=== PATIENT | male | born 1945 | race Caucasian/White ===

== ENCOUNTER 2017-11-30 12:00 | Emergency (ER) | payer MEDICARE, BC ==
--- NOTE | 2017-11-30 12:37 | RAD ---
HISTORY: CP, SOB COMPARISONS: August 29, 2005 VIEWS: 1: frontal portable view of the chest at 12:24 PM FINDINGS: LINES AND TUBES: None. CARDIOMEDIASTINAL SILHOUETTE: The cardiomediastinal silhouette is normal for portable technique. PLEURA: The costophrenic angles are sharp. No pleural abnormalities are noted. LUNG PARENCHYMA: The lungs are clear. ABDOMEN: The upper abdomen is clear. There is no subphrenic gas. BONES AND SOFT TISSUES: No bone or soft tissue abnormalities are noted. IMPRESSION: NO ACTIVE CARDIOPULMONARY DISEASE.
[2017-11-30 13:01] LABS: ABS Basophils 0 10^3/ul (0-0.2); ABS Eosinophils 0.1 10^3/ul (0-0.6); ABS Lymphocytes 1.7 10^3/ul (1.0-4.8); ABS Monocytes 0.5 10^3/ul (0-0.8); ABS Neutrophils 4.9 10^3/ul (1.5-7.7); ABS Nucleated RBC 0 10^3/ul; Hematocrit 42 % (42-52); Hemoglobin 14.3 g/dl (14.0-18.0); Lymphocyte % 23.5 % (25-47); Mean Corpuscular HGB Conc 34 g/dl (31-36); Mean Corpuscular Hemoglobin 30 pg (27-31); Mean Corpuscular Volume 87 fL (80-94); Mean Platelet Volume 9.2 um3 (7.4-10.4); Nucleated Red Blood Cells % 0; Platelet Count 168 10^3/ul (150-450); Red Blood Count 4.82 10^6/ul (4.00-5.40); Red Cell Distribution Width 15 % (10.5-15); White Blood Count 7.3 10^3/ul (3.5-10.8)
[2017-11-30 13:19] LABS: EGFR Non-African American 67.6 (>60)
[2017-11-30 13:20] LABS: INR 0.9 (0.77-1.02)
--- NOTE | 2017-11-30 14:39 | RAD ---
Indication: Shortness of breath. Recent travel. Comparison: November 30, 2017 chest radiograph. Technique: Following administration of 13.900 mCi xenon-133 by inhalation anterior and posterior ventilation images were obtained. Following the administration of 6.400 mCi of Tc-99m macroaggregated albumin, perfusion images were obtained in multiple projections. Report: The ventilation pattern is uniform with no evidence of air trapping. Negative for segmental or subsegmental perfusion defects. IMPRESSION: #. No scintigraphic evidence for pulmonary embolism. Negative ventilation perfusion exam.
[2017-11-30 16:50] VITALS: BP 153/94
--- NOTE | 2017-12-05 06:36 | ED ---
Carlos Jon Tariq, scribed for German Mccarty MD on 11/30/17 at 1227 . HPI Cardiac - HPI Summary HPI Summary: A 72 y/o male presents to ED c/o SOB and palpitations. According to the pt, a couple days ago he noticed that he had a irregular heart beat (fast and skipping beats). He noted that his , who is a RN, told him that his heart beat was 90. He did not have another one of those episodes, however he has had SOB. He also noted that he has difficulty taking deep breathes. Pt denies fatigue during activity, CP or discomfort. He is concerned as the episode has never lasted this long before. Patient was kayaking from last Monday (6 days ago ) to yesterday. He felt SOB and "lousey". Temperatures during trip matched around 90s and higher. No thyroid issues known. PMHx of high BP. Patient is soft -spoken. Patient is on medications including Keppra. - History of Current Complaint Chief Complaint: EDDysrhythmPalp Stated Complaint: IRREGULAR HR Time Seen by Provider: 11/30/17 12:09 Hx Obtained From: Patient Onset/Duration: Started Days Ago, Resolved Timing: Intermittent Current Severity: None Pain Intensity: 0 Pain Scale Used: 0-10 Numeric Chest Pain Radiates: No Character: Irregular, Skipped Beats Aggravating Factor(s): Nothing Alleviating Factor(s): Nothing Associated Signs and Symptoms: Positive: Weakness - Fatigue, Shortness of Breath , Palpitations. Negative: Chest Pain - Allergy/Home Medications Allergies/Adverse Reactions: Allergies Allergy/AdvReac Type Severity Reaction Status Date / Time Iodinated Contrast- Oral and Allergy Difficulty Verified 11/30/17 12:04 IV Dye Breathing/Wheezing Home Medications: Home Medications Calcium Carbonate [Calcium] 500 mg PO DAILY 11/30/17 [History Confirmed 11/30/17 ] Cholecalciferol TAB* [Vitamin D TAB*] 1,000 unit PO DAILY 11/30/17 [History Confirmed 11/30/17] Cyanocobalamin TAB* [Vitamin B12 TAB*] 500 mcg PO DAILY 11/30/17 [History Confirmed 11/30/17] Lactobacillus Combo No.10 [Probiotic] 1 each PO DAILY 11/30/17 [History Confirmed 11/30/17] Lamotrigine XR (NF) [Lamictal XR (NF)] 200 mg PO BID 11/30/17 [History Confirmed 11/30/17] Levetiracetam XR TAB(NF) [Keppra XR (NF)] 1,000 mg PO BID 11/30/17 [History Confirmed 11/30/17] Multivitamins/Minerals TAB* [Theragran/minerals TAB*] 1 tab PO DAILY 11/30/17 [ History Confirmed 11/30/17] Pantoprazole TAB (NF) [Protonix TAB (NF)] 40 mg PO DAILY 11/30/17 [History Confirmed 11/30/17] amLODIPine TAB* [Norvasc 5 mg TAB*] 10 mg PO DAILY 11/30/17 [History Confirmed 11/30/17] PMH/Surg Hx/FS Hx/Imm Hx Endocrine/Hematology History: Denies: Hx Anticoagulant Therapy, Hx Diabetes, Hx Thyroid Disease Cardiovascular History: Reports: Hx Hypertension Denies: Hx Congestive Heart Failure, Hx Deep Vein Thrombosis, Hx Myocardial Infarction, Hx Pacemaker/ICD Respiratory History: Denies: Hx Asthma, Hx Chronic Obstructive Pulmonary Disease (COPD), Hx Lung Cancer, Hx Pneumonia, Hx Pulmonary Embolism GI History: Reports: Hx Gastroesophageal Reflux Disease Denies: Hx Gall Bladder Disease, Hx Gastrointestinal Bleed, Hx Ulcer, Hx Urosepsis History: Reports: Hx Benign Prostatic Hyperplasia, Other Problems/ Disorders - TURP 2012 Denies: Hx Kidney Stones, Hx Renal Disease Musculoskeletal History: Reports: Hx Osteoporosis, Other Musculoskeletal History - osteopenia Denies: Hx Rheumatoid Arthritis Sensory History: Reports: Hx Contacts or Glasses, Hx Hearing Aid Opthamlomology History: Reports: Hx Contacts or Glasses Neurological History: Reports: Hx Seizures, Other Neuro Impairments/Disorders - 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 Denies: Hx Dementia, Hx Migraine, Hx Transient Ischemic Attacks (TIA) Psychiatric History: Denies: Hx Anxiety, Hx Depression, Hx Panic Disorder, Hx Schizophrenia, Hx Bipolar Disorder - Cancer History Cancer Type, Location and Year: Melanoma - Surgical History Surgery Procedure, Year, and Place: TURP-2010; TONSILECTOMY AGE 7 Infectious Disease History: No Infectious Disease History: Denies: Traveled Outside the [place] in Last 30 Days - Family History Known Family History: Positive: Hypertension, Other - POSITIVE: CVA; NEGATIVE: CANCER AND THROMBOSIS - Social History Alcohol Use: Daily Alcohol Amount: 1x beer per day Substance Use Type: Reports: None Smoking Status (MU): Never Smoked Tobacco Review of Systems Negative: Fever, Fatigue Negative: Erythema Negative: Sore Throat Positive: Palpitations, Other - POSITIVE: IRREGULAR AND SKIPPING HEART BEATS ( 90 BPM PER ). Negative: Chest Pain Positive: Shortness Of Breath. Negative: Cough Negative: Abdominal Pain, Vomiting, Nausea Negative: dysuria, hematuria Negative: Myalgia, Edema Negative: Rash Neurological: Other - NEGATIVE: DIZZINESS All Other Systems Reviewed And Are Negative: Yes Physical Exam - Summary Physical Exam Summary: Constitutional: Well-developed, Well-nourished, Alert. (-) Distressed Skin: Warm, Dry HENT: Normocephalic; Atraumatic Eyes: Conjunctiva normal Neck: Musculoskeletal ROM normal neck. (-) JVD, (-) Stridor, (-) Tracheal deviation Cardio: Rhythm regular, rate normal, Heart sounds normal; Intact distal pulses; The pedal pulses are 2+ and symmetric. Radial pulses are 2+ and symmetric. (-) Murmur Pulmonary/Chest wall: Effort normal. (-) Respiratory distress, (-) Wheezes, (-) Rales Abd: Soft, (-), epigastric tenderness, (-) Distension, (-) Guarding, (-) Rebound Musculoskeletal: (-) Edema Lymph: (-) Cervical adenopathy Neuro: Alert, Oriented x3 Psych: Mood and affect Normal NOTE: PATIENT'S TRAVEL HISTORY OF SOB, DIFFICULTY WITH TAKING DEEP BREATHES AND PALPITATIONS DRAWS CONCERN FOR PULMONARY EMBOLISM. Triage Information Reviewed: Yes Vital Signs On Initial Exam: Initial Vitals Temp Pulse Resp BP Pulse Ox 98.9 F 75 18 158/96 94 11/30/17 12:02 11/30/17 12:02 11/30/17 12:02 11/30/17 12:02 11/30/17 12:02 Vital Signs Reviewed: Yes Diagnostics - Vital Signs Vital Signs Temp Pulse Resp BP Pulse Ox 11/30/17 12:02 98.9 F 75 18 158/96 94 - Laboratory Result Diagrams: 11/30/17 12:45 11/30/17 12:45 Lab Statement: Any lab studies that have been ordered have been reviewed, and results considered in the medical decision making process. - Radiology CXR Radiology Interpretation Completed By: Radiologist - NO ACTIVE CARDIOPULMONARY DISEASE. ED PHYSICIAN REVIEWED THIS RADIOLOGY REPORT. LUNG SCAN VQ-NM Radiology Interpretation Completed By: Radiologist - No scintigraphic evidence for pulmonary embolism. Negative ventilation perfusion exam. ED PHYSICIAN REVIEWED THIS RADIOLOGY REPORT. - EKG 1211 Cardiac Rate: NL - 75 BPM EKG Rhythm: Sinus Rhythm EKG Interpretation: NEGATIVE FOR STEMI Disposition - Course Course Of Treatment: NV IS RULED OUT AND PE IS RULED OUT. NO ARRHYTHMIA IN ED. EPIDEMIOLOGY OF SYMPTOMS IS UNCLEAR. - Diagnoses Provider Diagnoses: SOB (shortness of breath), Heart palpitations Discharge - Sign-Out/Discharge Documenting (check all that apply): Discharge/Admit/Transfer - DISCHARGE - Discharge Plan Condition: Stable Disposition: HOME Patient Education Materials: Heart Palpitations (ED), Shortness of Breath (ED) Referrals: [facility] [Outside] - 3 Days (FO[facility] UP [facility] 2-3 DAYS IF CAN'T GET APPOINTMENT WITH PCP.) Monalisa Gallo MD [Primary Care Provider] - 3 Days (FOLLOW UP WITH PCP IN 2-3 DAYS. SET UP STRESS TEST OUTPATIENT BY PCP.) Additional Instructions: RETURN TO THE EMERGENCY DEPARTMENT FOR CHANGING OR WORSENING SYMPTOMS The documentation as recorded by the Carlos porter Tariq accurately reflects the service I personally performed and the decisions made by , German Mccarty MD.
== END 2017-11-30 16:49 | disposition home or self-care (01) ==
LOC: ED 12:00
DX: R06.02 Shortness of breath (principal); R00.2 Palpitations; Z91.041 Radiographic dye allergy status; Z79.899 Other long term (current) drug therapy; I10 Essential (primary) hypertension; K21.9 Gastro-esophageal reflux disease without esophagitis
CPT/HCPCS: 36415; 71045; 78582; 80053; 83605; 84439; 84443; 84484; 85025; 85610; 85730; 93005; 99282; A9540; A9558

== ENCOUNTER 2019-01-06 08:18 | Observation (INO) | payer MEDICARE, BC ==
--- OUTSIDE RECORDS SUMMARY | 2019-01-06 08:27 | XMS REPORT | Continuity of Care Document ---
:1945 External Reference #:[id number] Author Name Kate Chavez, NARDA Address [address] [place] [address] Care Team Providers Name Role Phone Monalisa Gallo - Family Medicine Care Team Information Jet Wiper [phone] Adela Rivera MD - Neurology Care Team Information Jet Wiper [phone] Sarabjit Sewell MD - Care Team Information Jet Wiper [phone] Gastroenterology Jacobo Reyna MD - Cardiovascular Care Team Information Jet Wiper Disease Problems Active Problems Provider Date Arthralgia of the pelvic region and thigh Monalisa Gallo M.D. Onset: 07/2017 Mixed hyperlipidemia Monalisa Gallo M.D. Onset: 08/29/2017 Generalized convulsive epilepsy Gene Maurice M.D. Onset: 02/19/2015 Disorder of skin and/or subcutaneous tissue Curry Contreras M.D. Onset: 09/2012 Prostatitis Curry Contreras M.D. Onset: 08/29/2012 Impaired fasting glycaemia Curry Contreras M.D. Onset: 08/29/2012 Benign essential hypertension Curry Contreras M.D. Onset: 08/29/2012 Social History Type Date Description Comments Sex Unknown Tobacco Use Start: Unknown End: Former Cigarette Smoker age 18 - 26 Unknown ETOH Use Occasional 5 beer/drinks a week. a scotch 1 a week. Tobacco Use Start: Unknown End: Patient is a former 1 ppdx 8 years. Unknown smoker Smoking Status Reviewed: 01/03/19 Patient is a former 1 ppdx 8 years. smoker Seat Belt/Car Seat Always uses seat belt Allergies, Adverse Reactions, Alerts Active Allergies Reaction Severity Comments Date Losartan hyperklalemia 08/29/2012 Lisinopril dry cough 01/01/2019 Inactive Allergies NKDA 07/12/2012 Medications Active Medications SIG Qnty Indications Ordering Provider Date Lamictal XR 1 by mouth twice 180tabs Monalisa Foley 10/05/2018 200mg daily. Valencia Gallo Tablets ER 24HR Keppra XR take 3 tablets 540tabs G40.309 Tana Ortega 06/29/2016 500mg Tablets by mouth twice LAKEISHA Dorantes ER 24HR daily. maximum daily dose of 6 tablets per day Amlodipine Besylate take 1 tablet by 90tabs Tana Ortega 03/19/2016 mouth every day LAKEISHA Dorantes 10mg Tablets Pantoprazole Sodium take 1 tablet by 90tabs Monalisa Foley 11/21/2015 mouth every day Valencia Gallo 40mg Tablets DR Calcium/Zinc Unknown Multi Vitamin once daily Unknown Tablets Vitamin D3 High twice daily Unknown Potency 1000Unit Capsules Probiotic 1 by mouth every Unknown Capsules day Vitamin B12 1 by mouth every Unknown Tablets day Sub History Medications Physical Therapy evaluate and M54.5 Monalisa Foley 10/05/2018 - treat low back Valencia Gallo 11/26/2018 pain Fluticasone 1 puff each 48gm J30.2 Monalisa Foley 09/25/2018 - Propionate nostril up to Valencia Gallo 10/05/2018 50mcg/Act bid. Suspension Immunizations CPT Code Status Date Vaccine Lot # [id number] Given 02/23/2018 High-Dose, Influenza Virus Vacccine-fluzone 65 and older [id number] Given 03/27/2017 High-Dose, Influenza Virus Vacccine-fluzone 65 and older [id number] Given 03/15/2016 High-Dose, Influenza Virus Vacccine-fluzone 65 and [id number] older 33072 Given 06/03/2015 Pneumococcal Conjugate Vacc-13 [id number] 42665 Given 06/03/2015 Hep A Adlt Immunization [id number] 85414 Given 06/25/2014 Tetanus And Diptheria Adult Preservative Free [id number] >7Yrs 44158 Given 06/25/2014 Hep A Adlt Immunization [id number] 77142 Given 04/04/2014 Influenza Vac, Quadrivalent, Slit Virus, Im [id number] 69159 Given 09/26/2013 Pneumococcal Immunization [id number] 18352 Given 03/11/2013 DO Not Use Split Influenza Virus Vaccine [id number] 06622 Given 07/17/2012 Zostivax [id number] Vital Signs Date Vital Result Comment 01/03/2019 6:04pm BP Systolic 150 mmHg BP Diastolic 96 mmHg Heart Rate 62 /min Body Temperature 97.3 F Respiratory Rate 16 /min Height 66 inches 5'6" Weight 146.00 lb BMI (Body Mass Index) 23.6 kg/m2 01/01/2019 4:34pm BP Systolic 134 mmHg BP Diastolic 86 mmHg BP Systolic Recheck 168 mmHg BP Diastolic Recheck 88 mmHg Heart Rate 68 /min Body Temperature 97.9 F Height 66 inches 5'6" Weight 146.00 lb BMI (Body Mass Index) 23.6 kg/m2 Results Test Date Facility Test Result H/L Range Note Comprehensive Metabolic 01/01/2019 [facility]) Sodium 144 mEq/L 134-149 Prof Potassium 4.1 mEq/L 3.6-5.5 Chloride 110 mEq/L 94-112 Carbon Dioxide 28 mEq/L 21-32 Glucose 105 mg/dL 70-105 BUN 14 mg/dL 6-26 Creatinine 1.0 mg/dL 0.6-1.4 BUN/Creat Ratio 14.0 CALC 8.0-36.0 Calcium 9.0 mg/dL 8.6-10.2 Total Protein 7.0 g/dL 6.4-8.3 Albumin 4.7 g/dL 3.8-5.5 Globulin 2.3 g/dL 2.0-4.8 A/G Ratio 2.0 CALC 0.6-2.3 Alk. Phosphatase 62 U/L 22-95 Alt (SGPT) 19 U/L 7-35 Ast (Sgot) 19 U/L 5-34 Total Bilirubin 0.4 mg/dL 0.2-1.3 GFR Non- >60 ml/min/1.73m^ >=60 GFR >60 ml/min/1.73m^ >=60 CBC Electronic [facility]ma 01/01/2019 [facility]) WBC 5.9 x10^3/UL 4.0- 10.0 RBC 4.49 x10^6/UL 3.93-6.00 HGB 13.5 g/dL 12.0-17.0 HCT 41 % 35-50 MCV 91.8 fL 80.0-95.0 MCH 30.1 pg 25.6-32.2 MCHC 32.8 g/dL 32.2-36.0 RDW-CV 12.6 % 11.6-14.4 PLT 168 x10^3/UL 163-400 MPV 10.1 fL 9.4-12.4 Shawanda# 3.29 x10^3/UL 1.56-6.13 Lymph# 1.83 x10^3/UL 1.18-3.74 Cotton# 0.57 x10^3/UL 0.24-0.82 Eos # 0.1 x10^3/UL 0.0-0.5 Baso # 0.04 x10^3/UL 0.01-0.08 Shawanda% 56.0 % 34.0-70.0 Lymph % 31.2 % 20.0-52.0 Cotton% 9.7 % 5.0-12.0 Eos% 2.2 % 0.7-7.0 Baso% 0.7 % 0.1-1.2 Laboratory test 01/01/2019 [facility](a) Magnesium, 2.5 mEq/L High 1.2-2.1 finding Serum Xray 12/27/2018 [facility] Abdominal [phone] Limited Ict Hemoccult 12/20/2018 [facility] Ict Hemoccult 12/03/18 Neg. (Fma) (375)- - (1) Ict Hemoccult-(2) 12/13/18 Neg. Ict-Hemoccult (3) 12/15/18 Neg. CBC Electronic Fma 12/11/2018 [facility]) WBC 6.5 x10^3/UL 4.0- 10.0 RBC 4.69 x10^6/UL 3.93-6.00 HGB 14.1 g/dL 12.0-17.0 HCT 42 % 35-50 MCV 90.0 fL 80.0-95.0 MCH 30.1 pg 25.6-32.2 MCHC 33.4 g/dL 32.2-36.0 RDW-CV 12.8 % 11.6-14.4 PLT 172 x10^3/UL 163-400 MPV 10.4 fL 9.4-12.4 Shawanda# 4.05 x10^3/UL 1.56-6.13 Lymph# 1.79 x10^3/UL 1.18-3.74 Cotton# 0.48 x10^3/UL 0.24-0.82 Eos # 0.1 x10^3/UL 0.0-0.5 Baso # 0.03 x10^3/UL 0.01-0.08 Shawanda% 62.7 % 34.0-70.0 Lymph % 27.7 % 20.0-52.0 Cotton% 7.4 % 5.0-12.0 Eos% 1.5 % 0.7-7.0 Baso% 0.5 % 0.1-1.2 Comprehensive Metabolic 12/11/2018 [facility]) Sodium 140 mEq/L 134-149 Prof Potassium 4.0 mEq/L 3.6-5.5 Chloride 98 mEq/L 94-112 Carbon Dioxide 25 mEq/L 21-32 Glucose 98 mg/dL 70-105 BUN 18 mg/dL 6-26 Creatinine 1.0 mg/dL 0.6-1.4 BUN/Creat Ratio 18.0 CALC 8.0-36.0 Calcium 9.4 mg/dL 8.6-10.2 Total Protein 7.2 g/dL 6.4-8.3 Albumin 4.8 g/dL 3.8-5.5 Globulin 2.4 g/dL 2.0-4.8 A/G Ratio 2.0 CALC 0.6-2.3 Alk. Phosphatase 69 U/L 22-95 Alt (SGPT) 20 U/L 7-35 Ast (Sgot) 24 U/L 5-34 Total Bilirubin 0.6 mg/dL 0.2-1.3 GFR Non- >60 ml/min/1.73m^ >=60 GFR >60 ml/min/1.73m^ >=60 Laboratory test 10/05/2018 [facility] Levetiracetam 35.8 10.0-40.0 1, [address] (Keppra), S ug/[place] [address] (607)- - Lamotrigine (Lamictal), Serum 10.8 ug/mL 2.0-20.0 3 Laboratory test finding 10/05/2018 [facility]) TSH 1.40 mIU/L 0.50-6.00 Vitamin D25 31 30-100 CBC Electronic Fma 10/05/2018 [facility]) WBC 6.6 x10^3/UL 4.0- 10.0 RBC 4.96 x10^6/UL 3.93-6.00 HGB 14.4 g/dL 12.0-17.0 HCT 44 % 35-50 MCV 89.3 fL 80.0-95.0 MCH 29.0 pg 25.6-32.2 MCHC 32.5 g/dL 32.2-36.0 RDW-CV 12.9 % 11.6-14.4 PLT 197 x10^3/UL 163-400 MPV 10.4 fL 9.4-12.4 Shawanda# 4.25 x10^3/UL 1.56-6.13 Lymph# 1.74 x10^3/UL 1.18-3.74 Cotton# 0.46 x10^3/UL 0.24-0.82 Eos # 0.1 x10^3/UL 0.0-0.5 Baso # 0.03 x10^3/UL 0.01-0.08 Shawanda% 64.1 % 34.0-70.0 Lymph % 26.3 % 20.0-52.0 Cotton% 6.9 % 5.0-12.0 Eos% 2.0 % 0.7-7.0 Baso% 0.5 % 0.1-1.2 Comprehensive Metabolic 10/05/2018 [facility]) Sodium 143 mEq/L 134-149 Prof Potassium 4.3 mEq/L 3.6-5.5 Chloride 99 mEq/L 94-112 Carbon Dioxide 26 mEq/L 21-32 Glucose 103 mg/dL 70-105 BUN 14 mg/dL 6-26 Creatinine 1.0 mg/dL 0.6-1.4 BUN/Creat Ratio 14.0 CALC 8.0-36.0 Calcium 9.3 mg/dL 8.6-10.2 Total Protein 6.9 g/dL 6.4-8.3 Albumin 4.7 g/dL 3.8-5.5 Globulin 2.2 g/dL 2.0-4.8 A/G Ratio 2.1 CALC 0.6-2.3 Alk. Phosphatase 71 U/L 22-95 Alt (SGPT) 18 U/L 7-35 Ast (Sgot) 25 U/L 5-34 Total Bilirubin 0.6 mg/dL 0.2-1.3 GFR Non- >60 ml/min/1.73m^ >=60 GFR >60 ml/min/1.73m^ >=60 Lipid Profile 10/05/2018 [facility]) Cholesterol 161 mg/dL 120- 200 Triglycerides 44 mg/dL 30-200 HDL Cholesterol 67 mg/dL 30-70 LDL (Calculated) 85 CALC 0-129 VLDL Cholesterol 9 mg/dL 0-50 HDL Risk Factor 2.4 CALC 0.0-4.4 Laboratory test finding 09/25/2018 [facility] Quickstrep NEG Negative (607)- - 1 2 red top serum poured off 2 This test was developed and its performance characteristics determined by [employer]. It has not been cleared or approved by the Food and Drug Administration. 3 This test was developed and its performance characteristics determined by [employer]. It has not been cleared or approved by the Food and Drug Administration. 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, subcu of sites Office Visit 11/26/2018 [facility] Office Kate Chavez, H61.23 Impacted cerumen, 2:30p PA bilateral H69.93 Unspecified Eustachian tube disorder, bilateral Office Visit 10/05/2018 10:00a [facility] Office Monalisa Foley Z00.01 Encounter for Valencia Gallo general adult medical exam w abnormal findings Z01.818 Encounter for other preprocedural examination H50.89 Other specified strabismus I10 Essential (primary) hypertension G40.309 Gen idiopathic epilepsy, not intractable, w/o stat epi E78.2 Mixed hyperlipidemia E55.9 Vitamin D deficiency, unspecified M54.5 Low back pain Z12.11 Encounter for screening for malignant neoplasm of colon Office Visit 09/25/2018 3:20p [facility] Office Monalisa Foley J02.9 Acute pharyngitis, Valencia Gallo unspecified J30.2 Other seasonal allergic rhinitis Assessments Date Code Description Provider 01/03/2019 R00.1 Bradycardia, unspecified Kate Chavez, PA 01/01/2019 R00.1 Bradycardia, unspecified Kate Chavez, NARDA 12/20/2018 R10.31 Right lower quadrant pain Kate Chavez, NARDA 12/11/2018 D17.39 Benign lipomatous neoplasm of skin, subcu Kate Chavez, PA of sites 11/26/2018 H61.23 Impacted cerumen, bilateral Kate Chavez, PA 11/26/2018 H69.93 Unspecified Eustachian tube disorder, Kate Chavez, PA bilateral 10/05/2018 Z00.01 Encounter for general adult medical Monalisa Gallo M.D. examination with abnorma 10/05/2018 Z01.818 Encounter for other preprocedural Monalisa Gallo M.D. examination 10/05/2018 H50.89 Other specified strabismus Monalisa Gallo M.D. 10/05/2018 I10 Essential (primary) hypertension Monalisa Gallo M.D. 10/05/2018 G40.309 Generalized idiopathic epilepsy and Monalisa Gallo M.D. epileptic syndromes, not 10/05/2018 E78.2 Mixed hyperlipidemia Monalisa Gallo M.D. 10/05/2018 E55.9 Vitamin D deficiency, unspecified Monalisa Gallo M.D. 10/05/2018 M54.5 Low back pain Monalisa Gallo M.D. 10/05/2018 Z12.11 Encounter for screening for malignant Monalisa Gallo M.D. neoplasm of colon 09/25/2018 J02.9 Acute pharyngitis, unspecified Monalisa Gallo M.D. 09/25/2018 J30.2 Other seasonal allergic rhinitis Monalisa Gallo M.D. Plan of Treatment 01/03/2019 - Kate Chavez, PAR00.1 Bradycardia, unspecifiedComments:See Cardiology tomorrow, you will be hearing from their office. Go the emergency room for any concerning symptoms including chest pain, palpitations, dizziness, feeling faint, or vision changes.AllComments:PCMHMedication Management Patient Understands medications he's taking? Yes Are there Barriers to Adherence? No Has the patient been asked about herbal supplements and therapies, and OTC meds? Yes Care Plan1. Patient has been queried about patient's goals/preferences and functional/lifestyle goals at relevant visits. Yes If relevant, describe: N/A2. Treatment goals as explained to the patient: above3. Are there barriers to meeting treatment goals? No If Yes , please describe:4. Self-Management goals as described to the patient: Yes As always, we strongly encourage a healthy diet and making physical activity a part of your every day life. If you have questions about how or where to start, please contact the office. Functional Status Description No Information Available Mental Status Description No Information Available Referrals Refer to Reason for Referral Status Appt Date Jacobo Reyna MD evaluate and tx-sinus taniya on EKG and elevated Created 00 / BP [address] [place] [address] [phone] Sarabjit Sewell MD colonoscopy jw Scheduled 10/10/2018 [address] [facility]. [address] [phone]
--- OUTSIDE RECORDS SUMMARY | 2019-01-06 08:27 | XMS REPORT | Continuity of Care Document ---
:1945 External Reference #:[id number] Author Name NARDA Jama Address [address] [place] [address] Care Team Providers Name Role Phone Monalisa Gallo - Family Medicine Care Team Information Environmental Remediation Engineer Adela Rivera MD - Neurology Care Team Information Environmental Remediation Engineer [phone] Sarabjit Sewell MD - Care Team Information Environmental Remediation Engineer [phone] Gastroenterology Problems Active Problems Provider Date Arthralgia of [...] 8 years. Unknown smoker Smoking Status Reviewed: 01/01/19 Patient is a former 1 ppdx 8 [...] Medications Physical Therapy evaluate and M54.5 Monalisa Floey 10/05/2018 - treat low back Valencia Gallo 11/26/2018 pain Fluticasone 1 puff each 48gm J30.2 Monalisa Foley 09/25/2018 - Propionate nostril up to Valencia Gallo 10/05/2018 50mcg/Act bid. Suspension Immunizations CPT Code Status Date Vaccine Lot # [id number] Given 02/23/2018 High-Dose, Influenza Virus Vacccine-fluzone 65 and older 85660 Given 03/27/2017 High-Dose, Influenza Virus Vacccine-fluzone 65 and older 92758 Given 03/15/2016 High-Dose, Influenza Virus Vacccine-fluzone 65 and [id number] older 81877 Given 06/03/2015 Pneumococcal Conjugate Vacc-13 [id number] 47243 Given 06/03/2015 Hep A Adlt Immunization [id number] 15399 Given 06/25/2014 Tetanus And Diptheria Adult Preservative Free [id number] >7Yrs 86326 Given 06/25/2014 Hep A Adlt Immunization [id number] 03806 Given 04/04/2014 Influenza Vac, Quadrivalent, Slit Virus, Im [id number] 85072 Given 09/26/2013 Pneumococcal Immunization [id number] 77891 Given 03/11/2013 DO Not Use Split Influenza Virus Vaccine [id number] 43351 Given 07/17/2012 Zostivax [id number] Vital Signs Date Vital Result Comment 01/01/2019 4:34pm BP Systolic 134 mmHg BP Diastolic 86 mmHg BP Systolic Recheck 168 mmHg BP Diastolic Recheck 88 mmHg Heart Rate 68 /min Body Temperature 97.9 F Height 66 inches 5'6" Weight 146.00 lb BMI (Body Mass Index) 23.6 kg/m2 12/11/2018 11:31am BP Systolic 140 mmHg BP Diastolic 88 mmHg Heart Rate 78 /min Body Temperature 97.9 F Height 66 inches 5'6" Results Test Date Facility Test Result H/L Range Note Laboratory test [facility](a) Magnesium <pending> 1.2- 2.1 finding 9 [facility] SEE ATTACHED 9 [facility] Abdominal [phone] Limited Ict Hemoccult [facility] Medicine Ict Hemoccult 12/03/18 Neg. (Fma) 9 (753)- - (1) Ict Hemoccult-(2) 12/13/18 Neg. Ict-Hemoccult [...] 4.05 x10^3/UL 1.56-6.13 Lymph# 1.79 x10^3/UL 1.18-3.74 Weld# 0.48 x10^3/UL 0.24-0.82 Eos # 0.1 x10^3/UL 0.0-0.5 Baso # 0.03 x10^3/UL 0.01-0.08 Shawanda% 62.7 % 34.0-70.0 Lymph % 27.7 % 20.0-52.0 Weld% 7.4 % 5.0-12.0 Eos% 1.5 % 0.7-7.0 Baso% 0.5 % 0.1-1.2 Comprehensive Metabolic 12/11/2018 [facility](fma) Sodium 140 mEq/L 134-149 Prof Potassium [...] finding [address] (Keppra), S ug/[place] [address] (607)- - Lamotrigine (Lamictal), Serum 10.8 ug/mL 2.0-20.0 3 Laboratory test finding 10/05/2018 [facility](fma) TSH 1.40 mIU/L 0.50-6.00 Vitamin D25 31 30-100 CBC Electronic Fma 10/05/2018 [facility]) WBC 6.6 x10^3/UL 4.0- 10.0 RBC 4.96 x10^6/UL 3.93-6.00 HGB 14.4 g/dL 12.0-17.0 HCT 44 % 35-50 MCV 89.3 fL 80.0-95.0 MCH 29.0 pg 25.6-32.2 MCHC 32.5 g/dL 32.2-36.0 RDW-CV 12.9 % 11.6-14.4 PLT 197 x10^3/UL 163-400 MPV 10.4 fL 9.4-12.4 Shawanda# 4.25 x10^3/UL 1.56-6.13 Lymph# 1.74 x10^3/UL 1.18-3.74 Weld# 0.46 x10^3/UL 0.24-0.82 Eos # 0.1 x10^3/UL 0.0-0.5 Baso # 0.03 x10^3/UL 0.01-0.08 Shawanda% 64.1 % 34.0-70.0 Lymph % 26.3 % 20.0-52.0 Weld% 6.9 % 5.0-12.0 Eos% 2.0 % 0.7-7.0 Baso% 0.5 % 0.1-1.2 Comprehensive Metabolic 10/05/2018 [facility]) Sodium 143 mEq/L 134-149 Prof Potassium [...] 2.4 CALC 0.0-4.4 Laboratory test finding 09/25/2018 [facility] Quickstrep NEG Negative (607)- - 1 2 red top serum poured off 2 This test was developed and its performance characteristics determined by [facility]. It has not been cleared or approved by the Food and Drug Administration. 3 This test was developed and its performance characteristics determined by [facility]. It has not been cleared or approved by the Food and Drug Administration. 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, subcu of sites Office Visit 11/26/2018 [facility] Office Kate Chavez, H61.23 Impacted cerumen, 2:30p PA bilateral H69.93 Unspecified Eustachian tube disorder, bilateral Office Visit 10/05/2018 10:00a [facility] Office Monalisa Foley Z00.01 Encounter for Valencia Gallo general adult medical exam w abnormal findings Z01.818 Encounter for other preprocedural examination H50.89 Other specified strabismus I10 Essential (primary) hypertension G40.309 Gen idiopathic epilepsy, not intractable, w/o stat epi E78.2 Mixed hyperlipidemia E55.9 Vitamin D deficiency, unspecified M54.5 Low back pain Z12.11 Encounter for screening for malignant neoplasm of colon Office Visit 09/25/2018 3:20p [facility] Office Monalisa Foley J02.9 Acute pharyngitis, Valencia Gallo unspecified J30.2 Other seasonal allergic rhinitis Assessments Date Code Description Provider 01/01/2019 R00.1 Bradycardia, unspecified NARDA Jama 12/20/2018 R10.31 Right lower quadrant pain NARDA Jama 12/11/2018 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 10/05/2018 E55.9 Vitamin D deficiency, tonyaified Monalisa Gallo M.D. 10/05/2018 M54.5 Low back pain Monalisa Gallo M.D. 10/05/2018 Z12.11 Encounter for screening for malignant Monalisa Gallo M.D. neoplasm of colon 09/25/2018 J02.9 Acute pharyngitis, unspecified Monalisa Gallo M.D. 09/25/2018 J30.2 Other seasonal allergic rhinitis Monalisa Gallo M.D. Plan of Treatment Future Appointment(s):01/03/2019 6:00 pm - NARDA Jama at [facility]7710/2018 - Kate Chavez, PAR00.1 Bradycardia, unspecifiedComments:Push fluids. Be sure to take your multivitamin.No increase in medications at this time. ER- worsening headache, dizziness, chest pain.AllComments:PCMHMedication Management Patient Understands medications he's taking? Yes [...] to Reason for Referral Status Appt Date aSrabjit Sewell MD colonoscopy jw Scheduled 10/10/[address] [place] [id number] [phone]
--- OUTSIDE RECORDS SUMMARY | 2019-01-06 08:27 | XMS REPORT | Continuity of Care Document ---
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 Onset: 08/29/2012 Family History Date Family Member(s) Observation Comments General Prostate Cancer father. Mother Hemangioma First Son 29 Second Son 26 First Brother Hypertension First Brother 73 [facility] Second Brother Maura Social History Type Date Description Comments Sex Unknown Marital Status Legal Status: Tobacco Use Start: Unknown End: Former Cigarette Smoker age 18 - 26 Unknown ETOH Use Occasional 5 beer/drinks a week. a scotch 1 a week. Tobacco Use Start: Unknown End: Patient is a former 1 ppdx 8 years. Unknown smoker Smoking Status Reviewed: 12/11/18 Patient is a former 1 ppdx 8 years. smoker Seat Belt/Car Seat Always uses seat belt Allergies, Adverse Reactions, Alerts Active Allergies Reaction Severity Comments Date Losartan hyperklalemia 08/29/2012 Inactive Allergies NKDA 07/12/2012 Medications Active Medications [...] Sub History Medications Physical Therapy evaluate and treat M54.5 Monalisa Foley 10/05/2018 - low back pain Valencia Gallo 11/26/2018 Fluticasone 1 puff each nostril 48gm J30.2 Monalisa Foley 09/25/2018 - Propionate up to bid. Valencia Gallo 10/05/2018 50mcg/Act Suspension Atovaquone-Proguanil take one by mouth 90tabs Z23 Tana Ortega 05/04/2018 - HCL daily starting at [facility] 09/25/2018 250-100mg Tablets least a day prior to travel and continuing for a week after return Shingrix inject subq. repeat 2units Z00.01 Monalisa Foley 08/29/2017 - 50mcg injection from 2-6 Valencia Gallo 03/15/2018 Suspension Rec months after first injection Physical Therapy evaluate and treat M25.551 Monalisa Foley 08/29/2017 - r hip pain/ core Valencia Gallo 03/15/2018 strengthening exercises. Prednisone 4 by mouth x 2 19tabs [facility] Julianna 06/01/2017 - 10mg Tablets days, then 3 by Maris [facility] 07/14/2017 mouth x 2 days, then 2 by mouth x 2 days,then 1 by mouth x 1 day Advair Diskus 1 puff twice a day, 60unit [address] 06/01/2017 - rinse after sample s Maris [facility] 07/14/2017 100-50mcg/Dose Aerosol Doxycycline Hyclate take one capsule by 60caps Byron Levine 06/01/2017 - mouth twice a day Maris [facility] 07/14/2017 100mg Capsules Dexilant 1 by mouth every 30caps Roger Ward 01/31/2017 - 60mg Capsules day Valencia Fernández 08/29/2017 DR Omar Guadalupe take one capsule by 60caps Monalisa Foley 11/15/2016 - mouth twice a day Valencia Gallo 01/30/2017 100mg Capsules on an empty stomach. Ok to take with a cracker if it hurts your stomach. Vitamin D take 1 capsule by 4caps Monalisa Foley 06/23/2016 - (Ergocalciferol) mouth once weekly Valencia Gallo 01/30/2017 for 12 weeks. [id number] Capsules Levetiracetam ER 2 by mouth twice a 360tab G40.401 Monalisa Foley 02/26/2015 - 500mg day teva brand s Valencia Gallo 06/29/2016 Tablets ER 24HR generic please. Hydrocortisone [address] of rectum 14unit 455.6 Gene Maurice M.D. 06/25/2014 - Acetate twice a day s 08/11/2016 25mg Suppository Vivotif Alicia Vaccine 1 tab every other 4caps Afsaneh Holloway 06/24/2014 - day for 4 doses M.D. 02/19/[address] Cuevasrix 1 ml Im once 1ml Afsaneh Jewel, 06/24/2014 - 1440El U/ML M.D. 02/19/2015 Suspension Lamotrigine take 1 by mouth 180tab 345.10 Gene Maurice M.D. 10/17/2012 - 200mg twice a day s 12/10/2015 Tablets Levofloxacin 1 po qd 20tabs 601.9 Curry Cook 08/29/2012 - 500mg Valencia Contreras 10/17/2012 Tablets Amlodipine Besylate Take 1 Tablet By 90tabs I10 Lakshmi Valadez, 08/14/2012 - Mouth One Time [facility] 12/10/2015 10mg Tablets Daily Carbamazepine take 4 tablets 120tab Curry Cook 07/12/2012 - 200mg daily chilo Contreras M.D. 02/19/2015 Tablets Levetiracetam 2 by mouth twice a 360tab 345.10 Gene Maurice M.D. 07/12/2012 - 500mg day s 02/26/2015 Tablets Omeprazole 1 po bid Zapien A. 07/12/2012 - 40mg Valencia Contreras 10/17/2012 Capsules Losartan Potassium 1 po qd 90tabs 276.7 Curry Cook 07/12/2012 - Valencia Contreras 08/14/2012 100mg Tablets Fish Oil take one capsule by Unknown - 1000mg mouth every day 07/14/2017 Capsules ([email or web address]) Y08-Opwtaf 2 tabs by mouth Unknown - 1mg Chewtabs every day 01/30/2017 Percocet 1-2 tabs by mouth Unknown - 5-325mg every 4 hours as 06/23/2016 Tablets needed pain Oxycontin 1 tab by mouth Unknown - 20mg Tab ER twice a day 06/23/2016 12H Abuse-Det Flomax 1 by mouth every Unknown - 0.4mg Capsules day 06/23/2016 Miralax 17 grams every day Unknown - [id number] Packet with large glass 06/23/2016 water Colace 1 by mouth twice Unknown - 100mg Capsules daily 06/23/2016 Lamictal take one tablet by 180tab Monalisa Foley - 200mg Tablets mouth twice daily chilo Gallo M.D. 10/05/2018 Famotidine 1 tab by mouth qd Unknown - 40mg Tablets 12/10/2015 Keppra XR 2 tabs po bid Unknown - 500mg Tablets 06/03/2015 ER 24HR Dha Complete Unknown - 200mg 12/10/2015 Capsules Fish Oil Unknown - 600mg Capsules 05/20/2016 Vitamin B12 1 po qd Unknown - Tablets 05/20/2016 Omeprazole 1 by mouth every 30caps Roger Ward - 40mg day Valencia Fernández 11/21/2015 Capsules Immunizations CPT Code Status Date Vaccine Lot # [id number] Given 02/23/2018 High-Dose, Influenza Virus Vacccine-fluzone 65 and older [id number] Given 03/27/2017 High-Dose, Influenza Virus Vacccine-fluzone 65 and older 75578 Given 03/15/2016 High-Dose, Influenza Virus Vacccine-fluzone 65 and [id number] older 47143 Given 06/03/2015 Pneumococcal Conjugate Vacc-13 [id number] 94264 Given 06/03/2015 Hep A Adlt Immunization [id number] 61036 Given 06/25/2014 Tetanus And Diptheria Adult Preservative Free [id number] >[id number] 79298 Given 06/25/2014 Hep A Adlt Immunization [id number] 96498 Given 04/04/2014 Influenza Vac, Quadrivalent, Slit Virus, Im [id number] 52388 Given 09/26/2013 Pneumococcal Immunization [id number] 53402 Given 03/11/2013 DO Not Use Split Influenza Virus Vaccine [id number] 56211 Given 07/17/2012 Zostivax [id number] Vital Signs Date Vital Result Comment 12/11/2018 11:31am BP Systolic 140 mmHg BP Diastolic 88 mmHg Heart Rate 78 /min Body Temperature 97.9 F Height 66 inches 5'6" 11/26/2018 2:35pm BP Systolic 144 mmHg BP Diastolic 84 mmHg Heart Rate 66 /min Body Temperature 97.9 F Height 66 inches 5'6" Weight 144.00 lb BMI (Body Mass Index) 23.2 kg/m2 10/05/2018 10:09am BP Systolic 130 mmHg BP Diastolic 86 mmHg Heart Rate 64 /min Body Temperature 97.7 F Height 66 inches 5'6" Weight 140.00 lb BMI (Body Mass Index) 22.6 kg/m2 09/25/2018 4:29pm BP Systolic 144 mmHg BP Diastolic 80 mmHg Heart Rate 62 /min Body Temperature 98.2 F Height 66 inches 5'6" Weight 144.12 lb BMI (Body Mass Index) 23.3 kg/m2 05/04/2018 10:54am BP Systolic 140 mmHg BP Diastolic 84 mmHg Heart Rate 72 /min Body Temperature 97.7 F Respiratory Rate 16 /min Height 66 inches 5'6" Weight 151.00 lb BMI (Body Mass Index) 24.4 kg/m2 03/15/2018 1:00pm BP Systolic 142 mmHg BP Diastolic 90 mmHg BP Systolic Recheck 120 mmHg BP Diastolic Recheck 80 mmHg Heart Rate 68 /min Body Temperature 97.8 F Respiratory Rate 18 /min Height 66 inches 5'6" Weight 141.00 lb BMI (Body Mass Index) 22.8 kg/m2 08/29/2017 10:32am BP Systolic 122 mmHg BP Diastolic 82 mmHg Heart Rate 60 /min Body Temperature 97.7 F Height 66 inches 5'6" Weight 142.00 lb BMI (Body Mass Index) 22.9 kg/m2 07/14/2017 2:05pm BP Systolic 148 mmHg BP Diastolic 88 mmHg Heart Rate 68 /min Body Temperature 96.3 F Respiratory Rate 18 /min Height 66 inches 5'6" Weight 143.00 lb BMI (Body Mass Index) 23.1 kg/m2 06/01/2017 2:58pm BP Systolic 160 mmHg BP Diastolic 98 mmHg Heart Rate 62 /min Body Temperature 97.8 F Height 66 inches 5'6" Weight 154.38 lb BMI (Body Mass Index) 24.9 kg/m2 01/31/2017 3:27pm BP Systolic 152 mmHg BP Diastolic 90 mmHg Heart Rate 70 /min Body Temperature 99.0 F Height 66 inches 5'6" Weight 149.12 lb BMI (Body Mass Index) 24.1 kg/m2 12/21/2016 9:27am BP Systolic 130 mmHg BP Diastolic 76 mmHg Heart Rate 60 /min Body Temperature 98.0 F Respiratory Rate 18 /min Height 66 inches 5'6" Weight 148.00 lb BMI (Body Mass Index) 23.9 kg/m2 08/13/2016 10:47am BP Systolic 128 mmHg BP Diastolic 84 mmHg Heart Rate 72 /min Respiratory Rate 16 /min Height 66 inches 5'6" Weight 154.00 lb BMI (Body Mass Index) 24.9 kg/m2 06/23/2016 10:56am BP Systolic 120 mmHg BP Diastolic 74 mmHg Heart Rate 64 /min Body Temperature 97.5 F Respiratory Rate 16 /min Height 66 inches 5'6" Weight 145.00 lb BMI (Body Mass Index) 23.4 kg/m2 04/18/2016 11:08am BP Systolic 118 mmHg BP Diastolic 80 mmHg Heart Rate 72 /min Body Temperature 98.6 F Respiratory Rate 16 /min Height 66 inches 5'6" Weight 146.25 lb BMI (Body Mass Index) 23.6 kg/m2 04/05/2016 10:04am BP Systolic 130 mmHg BP Diastolic 88 mmHg Heart Rate 68 /min Body Temperature 98.0 F Respiratory Rate 18 /min Height 66 inches 5'6" Weight 143.00 lb BMI (Body Mass Index) 23.1 kg/m2 12/10/2015 2:32pm BP Systolic 120 mmHg BP Diastolic 84 mmHg Heart Rate 58 /min Body Temperature 97.9 F Respiratory Rate 18 /min Height 66 inches 5'6" Weight 141.00 lb BMI (Body Mass Index) 22.8 kg/m2 06/03/2015 8:11am BP Systolic 132 mmHg BP Diastolic 78 mmHg Heart Rate 68 /min Body Temperature 97.6 F Respiratory Rate 16 /min Height 66 inches 5'6" Weight 152.00 lb BMI (Body Mass Index) 24.5 kg/m2 02/19/2015 9:40am BP Systolic 150 mmHg BP Diastolic 92 mmHg Heart Rate 68 /min Body Temperature 98.0 F Height 66 inches 5'6" Weight 149.00 lb BMI (Body Mass Index) 24.0 kg/m2 06/25/2014 2:21pm BP Systolic 120 mmHg BP Diastolic 66 mmHg Heart Rate 66 /min Body Temperature 97.8 F Respiratory Rate 16 /min Height 66 inches 5'6" Weight 152.38 lb BMI (Body Mass Index) 24.6 kg/m2 06/05/2014 10:01am BP Systolic 110 mmHg BP Diastolic 70 mmHg Heart Rate 68 /min Respiratory Rate 14 /min Height 66 inches 5'6" Weight 150.00 lb BMI (Body Mass Index) 24.2 kg/m2 10/18/2013 4:08pm BP Systolic 126 mmHg BP Diastolic 80 mmHg Heart Rate 58 /min Body Temperature 97.4 F Respiratory Rate 18 /min Height 66 inches 5'6" Weight 150.00 lb BMI (Body Mass Index) 24.2 kg/m2 09/26/2013 8:28am BP Systolic 140 mmHg BP Diastolic 90 mmHg Heart Rate 68 /min Body Temperature 97.6 F Respiratory Rate 14 /min Height 66 inches 5'6" Weight 149.00 lb BMI (Body Mass Index) 24.0 kg/m2 05/09/2013 3:40pm BP Systolic 112 mmHg BP Diastolic 64 mmHg Heart Rate 60 /min Body Temperature 96.4 F Height 66 inches 5'6" Weight 151.25 lb BMI (Body Mass Index) 24.4 kg/m2 04/02/2013 11:42am BP Systolic 130 mmHg BP Diastolic 80 mmHg Heart Rate 60 /min Body Temperature 97.3 F Respiratory Rate 16 /min Height 66 inches 5'6" Weight 149.00 lb BMI (Body Mass Index) 24.0 kg/m2 10/17/2012 10:07am BP Systolic 122 mmHg BP Diastolic 80 mmHg Heart Rate 68 /min Body Temperature 96.8 F Respiratory Rate 16 /min Height 66 inches 5'6" Weight 147.00 lb BMI (Body Mass Index) 23.7 kg/m2 08/29/2012 8:42am BP Systolic 130 mmHg BP Diastolic 80 mmHg Heart Rate 68 /min Body Temperature 96.6 F Height 66 inches 5'6" Weight 150.00 lb BMI (Body Mass Index) 24.2 kg/m2 08/14/2012 11:12am BP Systolic 120 mmHg BP Diastolic 80 mmHg Heart Rate 68 /min Body Temperature 98.1 F Respiratory Rate 16 /min Height 66 inches 5'6" Weight 154.00 lb BMI (Body Mass Index) 24.9 kg/m2 07/12/2012 2:04pm BP Systolic 120 mmHg BP Diastolic 80 mmHg Heart Rate 68 /min Body Temperature 97.2 F Respiratory Rate 16 /min Height 66 inches 5'6" Weight 149.00 lb BMI (Body Mass Index) 24.0 kg/m2 Results Test Date Facility Test Result H/L Range Note Laboratory test [facility] Levetiracetam 35.8 ug/mL 10.0-40.0 1 , 2 finding [address] ([place]), [place] [address] (029)- - Lamotrigine (Lamictal), Serum 10.8 ug/mL 2.0-20.0 3 Laboratory test finding 10/05/2018 Ronaldo Abdi([facility]) TSH 1.40 mIU/L 0.50-6.00 Vitamin D25 31 30-100 CBC Electronic Fma 10/05/2018 Ronaldo Trinidad([facility]) WBC 6.6 x10^3/UL 4.0- 10.0 RBC 4.96 x10^6/UL 3.93-6.00 HGB 14.4 g/dL 12.0-17.0 HCT 44 % 35-50 MCV 89.3 fL 80.0-95.0 MCH 29.0 pg 25.6-32.2 MCHC 32.5 g/dL 32.2-36.0 RDW-CV 12.9 % 11.6-14.4 PLT 197 x10^3/UL 163-400 MPV 10.4 fL 9.4-12.4 [place]# 4.25 x10^3/UL 1.56-6.13 Lymph# 1.74 x10^3/UL 1.18-3.74 [place]# 0.46 x10^3/UL 0.24-0.82 Eos # 0.1 x10^3/UL 0.0-0.5 Baso # 0.03 x10^3/UL 0.01-0.08 [place]% 64.1 % 34.0-70.0 Lymph % 26.3 % 20.0-52.0 [place]% 6.9 % 5.0-12.0 Eos% 2.0 % 0.7-7.0 Baso% 0.5 % 0.1-1.2 Comprehensive Metabolic 10/05/2018 Ronaldo Trinidad([facility]) Sodium 143 mEq/L 134-149 Prof Potassium [...] CALC 0.0-4.4 Laboratory test finding 09/25/2018 [facility] Quickstrep NEG Negative (607)- - Laboratory test finding 05/17/2018 Higgins Trinidad([facility]) PSA 0.7 ng/mL 0.0 -4.0 Comprehensive Metabolic 05/04/2018 Higgins Trinidad([facility]) Sodium 138 mEq/L 134-149 Prof Potassium 4.2 mEq/L 3.6-5.5 Chloride 104 mEq/L 94-112 Carbon Dioxide 23 mEq/L 21-32 Glucose 93 mg/dL 70-105 BUN 18 mg/dL 6-26 Creatinine 1.1 mg/dL 0.6-1.4 BUN/Creat Ratio 16.4 CALC 8.0-36.0 Calcium 10.0 mg/dL 8.6-10.2 Total Protein 7.3 g/dL 6.4-8.3 Albumin 5.1 g/dL 3.8-5.5 Globulin 2.2 g/dL 2.0-4.8 A/G Ratio 2.3 CALC 0.6-2.3 Alk. Phosphatase 75 U/L 22-95 Alt (SGPT) 19 U/L 7-35 Ast (Sgot) 22 U/L 5-34 Total Bilirubin 0.5 mg/dL 0.2-1.3 GFR Non- >60 ml/min/1.73m^ >=60 GFR >60 ml/min/1.73m^ >=60 CBC Electronic a 05/04/2018 Higgins Flora([facility]) WBC 5.2 x10^3/UL 4.0- 10.0 RBC 5.11 x10^6/UL 3.93-6.00 HGB 15.0 g/dL 12.0-17.0 HCT 46 % 35-50 MCV 89.6 fL 80.0-95.0 MCH 29.4 pg 25.6-32.2 MCHC 32.8 g/dL 32.2-36.0 RDW-CV 12.0 % 11.6-14.4 PLT 172 x10^3/UL 163-400 MPV 10.4 fL 9.4-12.4 [place]# 2.91 x10^3/UL 1.56-6.13 Lymph# 1.64 x10^3/UL 1.18-3.74 [place]# 0.48 x10^3/UL 0.24-0.82 Eos # 0.1 x10^3/UL 0.0-0.5 Baso # 0.04 x10^3/UL 0.01-0.08 [place]% 56.1 % 34.0-70.0 Lymph % 31.7 % 20.0-52.0 [place]% 9.3 % 5.0-12.0 Eos% 1.9 % 0.7-7.0 Baso% 0.8 % 0.1-1.2 Laboratory test finding 05/04/2018 Ronaldo Abdi([facility]) TSH 2.02 mIU/L 0.50-6.00 Vitamin B-12 1601 pg/mL High 230-1050 4 Laboratory test 05/04/2018 [facility] Hemoglobin A1c 5.6 % 4.1-5.7 finding (607)- - ([facility]) Laboratory test 11/30/2017 [facility] Troponin I 0.00 ng/mL <0.04 finding TSH (Thyroid Stim Horm) 0.86 mcIU/mL N 0.34-5.60 Free T4 (Free Thyroxine) 0.92 ng/dL N 0.61-1.12 Comp Metabolic Panel 11/30/2017 [facility] Sodium 140 mmol/L N 135-145 Potassium 3.9 mmol/L N 3.5-5.0 Chloride 104 mmol/L N 101-111 Co2 Carbon Dioxide 28 mmol/L N 22-32 Anion Gap 8 mmol/L N 2-11 Glucose 111 mg/dL High 70-100 Blood Urea Nitrogen 15 mg/dL N 6-24 Creatinine 1.08 mg/dL N 0.67-1.17 BUN/Creatinine Ratio 13.9 N 8-20 Calcium 9.4 mg/dL N 8.6-10.3 Total Protein 7.0 g/dL N 6.4-8.9 Albumin 4.4 g/dL N 3.2-5.2 Globulin 2.6 g/dL N 2-4 Albumin/Globulin Ratio 1.7 N 1-3 Total Bilirubin 0.40 mg/dL N 0.2-1.0 Alkaline Phosphatase 71 U/L N 34-104 Alt 16 U/L N 7-52 Ast 21 U/L N 13-39 Egfr Non- 67.6 >60 Egfr 81.8 >60 5 Laboratory test finding 11/30/2017 [facility] Lactic Acid 1.3 mmol/L N 0.5-2.0 6 CBC Auto Diff 11/30/2017 [facility] White Blood Count 7.3 10^3/uL N 3.5-10.8 Red Blood Count 4.82 10^6/uL N 4.00-5.40 Hemoglobin 14.3 g/dL N 14.0-18.0 Hematocrit 42 % N 42-52 Mean Corpuscular Volume 87 fL N 80-94 Mean Corpuscular Hemoglobin 30 pg N 27-31 Mean Corpuscular HGB Conc 34 g/dL N 31-36 Red Cell Distribution Width 15 % N 10.5-15 Platelet Count 168 10^3/uL N 150-450 Mean Platelet Volume 9.2 um3 N 7.4-10.4 Abs Neutrophils 4.9 10^3/uL N 1.5-7.7 Abs Lymphocytes 1.7 10^3/uL N 1.0-4.8 Abs Monocytes 0.5 10^3/uL N 0-0.8 Abs Eosinophils 0.1 10^3/uL N 0-0.6 Abs Basophils 0 10^3/uL N 0-0.2 Abs Nucleated RBC 0 10^3/uL Granulocyte % 66.7 % N 38-83 Lymphocyte % 23.5 % Low 25-47 Monocyte % 7.2 % High 0-7 Eosinophil % 2.0 % N 0-6 Basophil % 0.6 % N 0-2 Nucleated Red Blood Cells % 0 Laboratory test 11/30/2017 [facility] Partial 34.5 seconds N 26.0-36.3 finding Thrombo Time PTT Inr/Protime 11/30/2017 [facility] Inr 0.90 N 0.77-1.02 Laboratory test 11/30/2017 [facility] Troponin I 0.00 ng/mL <0.04 finding Comprehensive 08/29/2017 Ronaldo Trinidad([facility]) Sodium 140 mEq/L 134-149 Metabolic Prof Potassium 4.4 mEq/L 3.6-5.5 Chloride 99 mEq/L 94-112 Carbon Dioxide 27 mEq/L 21-32 Glucose 94 mg/dL 70-105 BUN 16 mg/dL 6-26 Creatinine 1.0 mg/dL 0.6-1.4 BUN/Creat Ratio 16.0 CALC 8.0-36.0 Calcium 9.4 mg/dL 8.6-10.2 Total Protein 7.2 g/dL 6.4-8.3 Albumin 4.8 g/dL 3.8-5.5 Globulin 2.4 g/dL 2.0-4.8 A/G Ratio 2.0 CALC 0.6-2.3 Alk. Phosphatase 84 U/L 22-95 Alt (SGPT) 20 U/L 7-35 Ast (Sgot) 22 U/L 5-34 Total Bilirubin 0.5 mg/dL 0.2-1.3 GFR Non- >60 ml/min/1.73m^ >=60 GFR >60 ml/min/1.73m^ >=60 Lipid Profile 08/29/2017 [facility] Trinidad([facility]) Cholesterol 197 mg/dL 120- 200 Triglycerides 89 mg/dL 30-200 HDL Cholesterol 64 mg/dL 30-70 LDL (Calculated) 115 CALC 0-129 VLDL Cholesterol 18 mg/dL 0-50 HDL Risk Factor 3.1 CALC 0.0-4.4 Laboratory test 08/29/2017 [facility] Levetiracetam 27.4 ug/mL 10.0-40.0 7 finding [address] [facility] [place] [address] (607)- - Lamotrigine (Lamictal), Serum 9.6 ug/mL 2.0-20.0 8 Laboratory test 06/22/2017 [facility] Trinidad([facility]) PSA 0.8 ng/mL 0.0-4.0 finding Laboratory test 01/31/2017 Higgins Trinidad([facility]) Amylase, 120 U/L High 20- 105 9 finding Serum Comprehensive 01/31/2017 Higgins Trinidad([facility]) Sodium 139 mEq/L 134-149 Metabolic Prof Potassium 4.3 mEq/L 3.6-5.5 Chloride 98 mEq/L 94-112 Carbon Dioxide 26 mEq/L 21-32 Glucose 104 mg/dL 70-105 BUN 16 mg/dL 6-26 Creatinine 0.9 mg/dL 0.6-1.4 BUN/Creat Ratio 17.8 CALC 8.0-36.0 Calcium 9.3 mg/dL 8.6-10.2 Total Protein 7.1 g/dL 6.4-8.3 Albumin 4.8 g/dL 3.8-5.5 Globulin 2.3 g/dL 2.0-4.8 A/G Ratio 2.1 CALC 0.6-2.3 Alk. Phosphatase 73 U/L 22-95 Alt (SGPT) 21 U/L 7-35 Ast (Sgot) 21 U/L 5-34 Total Bilirubin 0.5 mg/dL 0.2-1.3 GFR Non- >60 ml/min/1.73m^ >=60 GFR >60 ml/min/1.73m^ >=60 CBC Electronic (Fma) 01/31/2017 [facility] WBC 6.6 3.6-9.6 (607)- - RBC 5.07 3.90-5.70 Hemoglobin (Fma/CMC/CTX) 15.1 g/dL 12.1 - 17.2 Hematocrit (Fma/CMC/CTX) 44.8 % 36.1 - 50.3 Platelets 178 10^3/ul 150-400 Lymph% 26.2 % 17.0-48.0 Mixed% 4.2 Mean Corpuscular Vol 88 82.2-97.4 Mean Corpuscular Hemoglobin 29.7 27.6-33.3 Mean Corpuscular Hemo Concen 33.6 32.0-36.0 RDW 13.6 11.6-13.7 Mean Platelet Volume 7.6 5.5-11.0 Laboratory test 01/31/2017 [facility] Sedimentation Rate 2mm finding (607)- - Laboratory test 01/31/2017 [facility] C-Reactive Protein, 0.5 mg/L 0.0-4.9 10 finding [address] [place] [address] (607)- - H Pylori, Igm, 01/31/2017 [facility] H. pylori, IgG Abs <0.9 U/mL 0.0-0.8 11 Igg, [place] [address] [place] [phone] (608)- - H. pylori, IgA Abs <9.0 units 0.0-8.9 12 H pylori, IgM Abs <9.0 units 0.0-8.9 13 Laboratory test 01/31/2017 [facility] Lipase, Serum 23 U/L 0-[address] [place] [phone] (606)- - Laboratory test 09/20/2016 [facility] Levetiracetam 29.9 10.0-40.0 [address] [place] [address] (Keppra), S ug/[place] [address] (605)- - Lamotrigine (Lamictal), Serum 9.3 ug/mL 2.0-20.0 15 Lipid Profile 06/23/2016 Ronaldo Abdi([facility]) Cholesterol 201 mg/dL High 120-200 Triglycerides 98 mg/dL 30-200 HDL Cholesterol 74 mg/dL High 30-70 LDL (Calculated) 107 CALC 0-129 VLDL Cholesterol 20 mg/dL 0-50 HDL Risk Factor 2.7 CALC 0.0-4.4 Laboratory test finding 06/23/2016 Ronaldo Abdi([facility]) TSH 0.85 mIU/L 0.50-6.00 PSA 0.7 ng/mL 0.0-4.0 Vitamin B-12 488 pg/mL 230-1050 Vitamin D25 26 Low 30-100 Complete Blood Count 06/23/2016 Ronaldo Abdi([facility]) WBC 6.0 x10^3/UL 3.6 -9.6 RBC 4.85 x10^6/UL 3.90-5.70 HGB 14.5 g/dL 12.1-17.2 HCT 43 % 36-50 MCV 89.0 fL 82.2-97.4 MCH 29.9 pg 27.6-33.3 MCHC 33.6 g/dL 33.0-35.5 RDW 14.5 % High 11.6-13.7 PLT 274 x10^3/UL 150-400 MPV 7.7 fL 7.4-10.4 Gran # 3.7 x10^3/UL 1.5-7.2 Lymph# 2.0 x10^3/UL 0.7-4.9 [place]# 0.3 x10^3/UL 0.1-0.9 Gran % 61.1 % 42.2-75.2 Lymph % 33.8 % 20.5-51.1 [place]% 5.1 % 1.7-9.3 Comprehensive Metabolic 06/23/2016 [facility] Trinidad([facility]) Sodium 140 mEq/L 134-149 Prof Potassium 4.4 mEq/L 3.6-5.5 Chloride 102 mEq/L 94-112 Carbon Dioxide 29 mEq/L 21-32 Glucose 97 mg/dL 70-105 BUN 19 mg/dL 6-26 Creatinine 1.0 mg/dL 0.6-1.4 BUN/Creat Ratio 19.0 CALC 8.0-36.0 Calcium 10.1 mg/dL 8.6-10.2 Total Protein 7.5 g/dL 6.4-8.3 Albumin 4.8 g/dL 3.8-5.5 Globulin 2.7 g/dL 2.0-4.8 A/G Ratio 1.8 CALC 0.6-2.3 Alk. Phosphatase 104 U/L High 22-95 Alt (SGPT) 14 U/L 7-35 Ast (Sgot) 20 U/L 5-34 Total Bilirubin 0.4 mg/dL 0.2-1.3 GFR Non- >60 ml/min/1.73m^ >=60 GFR >60 ml/min/1.73m^ >=60 CBC Auto Diff 04/28/2016 [facility] White Blood Count 9.5 10^3/uL N 3.5-10.8 Red Blood Count 4.63 10^6/uL N 4.0-5.4 Hemoglobin 13.8 g/dL Low 14.0-18.0 Hematocrit 41 % Low 42-52 Mean Corpuscular Volume 89 fL N 80-94 Mean Corpuscular Hemoglobin 30 pg N 27-31 Mean Corpuscular HGB Conc 34 g/dL N 31-36 Red Cell Distribution Width 14 % N 10.5-15 Platelet Count 156 10^3/uL N 150-450 Mean Platelet Volume 10 um3 N 7.4-10.4 Abs Neutrophils 6.8 10^3/uL N 1.5-7.7 Abs Lymphocytes 1.9 10^3/uL N 1.0-4.8 Abs Monocytes 0.6 10^3/uL N 0-0.8 Abs Eosinophils 0.2 10^3/uL N 0-0.6 Abs Basophils 0 10^3/uL N 0-0.2 Abs Nucleated RBC 0 10^3/uL N Granulocyte % 71.4 % N 38-83 Lymphocyte % 19.5 % Low 25-47 Monocyte % 6.8 % N 1-9 Eosinophil % 1.9 % N 0-6 Basophil % 0.4 % N 0-2 Nucleated Red Blood Cells % 0 N Comp Metabolic Panel 04/28/2016 [facility] Sodium 138 mmol/L N 133-145 Potassium 3.8 mmol/L N 3.5-5.0 Chloride 101 mmol/L N 101-111 Co2 Carbon Dioxide 33 mmol/L High 22-32 Anion Gap 4 mmol/L N 2-11 Glucose 127 mg/dL High 70-100 Blood Urea Nitrogen 21 mg/dL N 6-24 Creatinine 1.31 mg/dL High 0.67-1.17 BUN/Creatinine Ratio 16.0 N 8-20 Calcium 9.4 mg/dL N 8.6-10.3 Total Protein 6.7 g/dL N 6.4-8.9 Albumin 4.1 g/dL N 3.2-5.2 Globulin 2.6 g/dL N 2-4 Albumin/Globulin Ratio 1.6 N 1-3 Total Bilirubin 0.40 mg/dL N 0.2-1.0 Alkaline Phosphatase 53 U/L N 34-104 Alt 31 U/L N 7-52 Ast 36 U/L N 13-39 Egfr Non- 54.4 N >60 Egfr 70.0 N >60 16 Laboratory test finding 04/28/2016 [facility] [place] Troponin I 0.00 ng/mL N <0.04 17 Lactic Acid 1.5 mmol/L N 0.5-2.0 18 Urinalysis Profile 04/28/2016 [facility] [place] Urine Color Yellow N Urine Appearance Cloudy N Urine Specific [place] 1.017 N 1.010-1.030 Urine pH 7.0 N 5-9 Urine Urobilinogen Negative N Negative Urine Ketones 1+ Abnormal Negative Urine Protein Negative N Negative Urine Leukocytes Negative N Negative Urine Blood 2+ Abnormal Negative Urine Nitrite Negative N Negative Urine Bilirubin Negative N Negative Urine Glucose Negative N Negative Urine White Blood Cell 1+(6-10/hpf) Abnormal Absent Urine Red Blood Cell 3+(>10/hpf) Abnormal Absent Urine Bacteria Absent N Absent Comp. Metabolic 02/27/2015 [facility] Glucose, Serum 99 mg/dL 65-99 19 Panel (14) [address] [place] [id number] (605)- - BUN 17 mg/dL 8-27 Creatinine, Serum 1.10 mg/dL 0.76-1.27 eGFR If NonAfricn Am 69 mL/min/1.73 >59 eGFR If Africn Am 80 mL/min/1.73 >59 BUN/Creatinine Ratio 15 10-22 Sodium, Serum 142 mmol/L 134-144 Potassium, Serum 5.2 mmol/L 3.5-5.2 Chloride, Serum 100 mmol/L 97-108 Carbon Dioxide, Total 25 mmol/L 18-29 Calcium, Serum 9.7 mg/dL 8.6-10.2 Protein, Total, Serum 7.1 g/dL 6.0-8.5 Albumin, Serum 5.0 g/dL High 3.6-4.8 Globulin, Total 2.1 g/dL 1.5-4.5 A/G Ratio 2.4 1.1-2.5 Bilirubin, Total 0.6 mg/dL 0.0-1.2 Alkaline Phosphatase, S 73 IU/L 39-117 Ast (Sgot) 29 IU/L 0-40 Alt (SGPT) 22 IU/L 0-44 Lipid Panel 02/27/2015 [facility] Cholesterol, Total 188 mg/dL [phone] [place] [address] (607)- - Triglycerides 49 mg/dL 0-149 HDL Cholesterol 86 mg/dL >39 20 VLDL Cholesterol Michael 10 mg/dL 5-40 LDL Cholesterol Calc 92 mg/dL 0-99 Comment: DNR CBC With 02/27/2015 [facility] WBC 6.4 x10E3/uL 3.4-10.8 Differential/Platelet [address] [place] [address] (607)- - RBC 5.05 x10E6/uL 4.14-5.80 Hemoglobin 14.9 g/dL 12.6-17.7 Hematocrit 44.7 % 37.5-51.0 MCV 89 fL 79-97 MCH 29.5 pg 26.6-33.0 MCHC 33.3 g/dL 31.5-35.7 RDW 13.4 % 12.3-15.4 Platelets 179 x10E3/uL 150-379 Neutrophils 55 % Lymphs 35 % Monocytes 6 % Eos 3 % Basos 1 % Immature Cells DNR Neutrophils (Absolute) 3.6 x10E3/uL 1.4-7.0 Lymphs (Absolute) 2.3 x10E3/uL 0.7-3.1 Monocytes(Absolute) 0.4 x10E3/uL 0.1-0.9 Eos (Absolute) 0.2 x10E3/uL 0.0-0.4 Baso (Absolute) 0.0 x10E3/uL 0.0-0.2 Immature Granulocytes 0 % Immature Grans (Abs) 0.0 x10E3/uL 0.0-0.1 NRBC DNR Hematology Comments: DNR Laboratory test 02/27/2015 [facility] Lamotrigine 8.4 ug/mL 2.0-20.0 21 finding 1447 [facility] (Lamictal), [place] [address] [phone])- - Levetiracetam (Keppra), S 20.6 ug/mL 10.0-40.0 Laboratory test finding 10/28/2014 [facility] PSA Screening 0.692 ng/mL N 0-4.0 CBC Auto Diff 03/10/2014 [facility] White Blood Count 6.2 10^3/uL N 4.8-10.8 Red Blood Count 4.62 10^6/uL N 4.0-5.4 Hemoglobin 13.6 g/dL Low 14.0-18.0 Hematocrit 41 % Low 42-52 Mean Corpuscular Volume 88 fL N 80-94 Mean Corpuscular Hemoglobin 29 pg N 27-31 Mean Corpuscular HGB Conc 34 g/dL N 31-36 Red Cell Distribution Width 13 % N 10.5-15 Platelet Count 164 10^3/uL N 150-450 Mean Platelet Volume 9 um3 N 7.4-10.4 Abs Neutrophils 3.9 10^3/uL N 1.5-7.7 Abs Lymphocytes 1.8 10^3/uL N 1.0-4.8 Abs Monocytes 0.4 10^3/uL N 0-0.8 Abs Eosinophils 0.1 10^3/uL N 0-0.6 Abs Basophils 0 10^3/uL N 0-0.2 Abs Nucleated RBC 0 10^3/uL N Granulocyte % 63.1 % N 38-83 Lymphocyte % 28.5 % N 25-47 Monocyte % 6.2 % N 1-9 Eosinophil % 1.6 % N 0-6 Basophil % 0.6 % N 0-2 Nucleated Red Blood Cells % 0 N Liver Function Panel 03/10/2014 [facility] Total Protein 6.8 g/dL N 6.4-8.9 Albumin 4.6 g/dL N 3.2-5.2 Globulin 2.2 g/dL N 2-4 Albumin/Globulin Ratio 2.1 N 1-3 Total Bilirubin 0.40 mg/dL N 0.2-1.0 Direct Bilirubin 0.10 mg/dL N 0.03-0.18 Indirect Bilirubin 0.3 mg/dL N 0.3-1.0 Alkaline Phosphatase 66 U/L N 34-104 Alt 19 U/L N 7-52 Ast 24 U/L N 13-39 Laboratory test finding 03/10/2014 [facility] Lamotrigine 9.2 g/mL N 2.5 - 15.0 22 Levetiracetam 27.9 g/mL N 23 Comprehensive 09/26/2013 [facility] Glucose 93 mg/dL 70-100 24 Metabolic [address] [place] [address] [phone] BUN 20 mg/dL 5-21 Creatinine, Serum 1.02 mg/dL 0.60-1.30 Sodium 141 mmol/L 136-146 Potassium 4.1 mmol/L 3.5-5.3 Chloride 104 mmol/L 98-110 Carbon Dioxide 31 mmol/L 20-32 Albumin 4.6 g/dL 3.5-4.7 Protein, Total 6.9 g/dL 6.4-8.3 Calcium 9.4 mg/dL 8.4-10.4 Alkaline Phosphatase 75 U/L 10-118 Sgot (Ast) 27 U/L 3-40 SGPT (Alt) 22 U/L 7-50 Bilirubin, Total 0.60 mg/dL 0.30-1.20 Lipid Panel 09/26/2013 [facility] Cholesterol, Total 187 mg/dL <200 [address] [place], [place] [id number] [phone] Triglycerides 60 mg/dL <150 HDL Cholesterol 68 mg/dL High 40-60 Chol/HDL Cholesterol 2.8 25 LDL Cholesterol, Calc. 107 mg/dL Abnormal 26 LDL/HDL Cholesterol 1.6 27 Laboratory test 09/26/2013 [facility] PSA, Total 0.50 ng/ml 0.00-4.00 28 finding [address] [place] [address] [phone] Hemoglobin A1c 09/26/2013 [facility] Hemoglobin A1c 5.5 % 29 [address] [place] [address] [phone] Estimated Avg Glucose 111.2 mg/dL Egfr (Calculated) 09/26/2013 [facility] Estimated GFR (CALCULATED) 28 [place] [address] [phone] Egfr >60 30 Egfr, -Swedish >60 31 Laboratory test 11/20/2012 [facility] PSA Diagnostic 0.87 ng/mL 0-4.0 32 finding Comprehensive 08/29/2012 [facility] Glucose 90 mg/dL 70-100 33 Metabolic [address] [place] [address] [phone] BUN 23 mg/dL High 5-21 Creatinine, Serum 1.22 mg/dL 0.60-1.30 Sodium 140 mmol/L 136-146 Potassium 5.2 mmol/L 3.5-5.3 Chloride 104 mmol/L 98-110 Carbon Dioxide 32 mmol/L 20-32 Albumin 4.7 g/dL 3.5-4.7 Protein, Total 7.0 g/dL 6.4-8.3 Calcium 9.5 mg/dL 8.4-10.4 Alkaline Phosphatase 88 U/L 10-118 Sgot (Ast) 34 U/L 3-40 SGPT (Alt) 43 U/L 7-50 Bilirubin, Total 0.40 mg/dL 0.30-1.20 PTH Intact 08/29/2012 [facility] Intact PTH 22.6 pg/mL 10.0-73.0 W/Calcim (CX) [address] [place] [address] [phone] Calcium 9.5 mg/dL 8.4-10.4 Egfr (Calculated) 08/29/2012 [facility] Estimated GFR (CALCULATED) 28 [place] [address] [phone] Egfr 60 34 Egfr, -Swedish >60 35 Hemoglobin A1c 08/29/2012 [facility] Hemoglobin A1c 5.7 % 36 [address] [place] [address] [phone] Estimated Avg Glucose 116.9 mg/dL Egfr (Calculated) 08/14/2012 [facility] Estimated GFR (CALCULATED) 37 [address] [place] [address] [phone] Egfr >60 38 Egfr, -Swedish >60 39 Basic Metabolic Panel 08/14/2012 [facility] Glucose 100 mg/dL 70-[address] [place] [address] [phone] BUN 22 mg/dL High 5-21 Creatinine, Serum 1.03 mg/dL 0.60-1.30 Sodium 139 mmol/L 136-146 Potassium 4.9 mmol/L 3.5-5.3 Chloride 103 mmol/L 98-110 Carbon Dioxide 31 mmol/L 20-32 Calcium 7.5 mg/dL Low 8.4-10.4 Laboratory test 08/14/2012 [facility] Surgical RUN DATE: 40 finding Pathology 08/16/ <SEE NOTE> CBC 07/17/2012 [facility] WBC 6.5 x10E3/uL 4.3-10. [address] [place] [address] [phone] RBC 4.94 x10E6/uL 4.70-6.20 Hemoglobin 14.8 g/dL 13.0-17.0 Hematocrit 44.7 % 39.0-50.0 MCV 90.5 fl 82.0-98.0 MCH 30.0 pg 27.5-33.5 MCHC 33.1 g/dL 32.0-36.0 RDW 13.1 % 11.5-14.5 Platelet Count 170 x10E3/uL 130-400 MPV 12.3 fl High 6.5-10.5 Segmented Neutrophils 59.0 % 44.0-74.0 Lymphocytes 30.6 % 15.0-45.0 Monocytes 7.3 % 2.0-13.0 Eosinophils 2.6 % 0.0-6.0 Basophils 0.5 % 0.0-2.0 Neutrophil Absolute 3.8 x10E3/uL 1.4-7.0 Lymphocytes Absolute 2.0 x10E3/uL 1.0-3.4 Monocyte Absolute 0.5 x10E3/uL 0.2-1.0 Eosinophil Absolute 0.2 x10E3/uL 0.0-0.5 Basophil Absolute 0.0 x10E3/uL 0.0-0.2 Lipid Panel 07/17/2012 [facility] Cholesterol, Total 175 mg/dL <200 [address] [place] [address] [phone] Triglycerides 65 mg/dL <150 HDL Cholesterol 55 mg/dL 40-60 Chol/HDL Cholesterol 3.2 42 LDL Cholesterol, Calc. 107 mg/dL Abnormal 43 LDL/HDL Cholesterol 1.9 44 Comprehensive 07/17/2012 [facility] Glucose 105 mg/dL High 70-100 Metabolic [address] [place] [address] [phone] BUN 18 mg/dL 5-21 Creatinine, Serum 1.08 mg/dL 0.60-1.30 Sodium 144 mmol/L 136-146 Potassium 5.8 mmol/L High 3.5-5.3 Chloride 106 mmol/L 98-110 Carbon Dioxide 35 mmol/L High 20-32 Albumin 4.5 g/dL 3.5-4.7 Protein, Total 6.8 g/dL 6.4-8.3 Calcium 9.5 mg/dL 8.4-10.4 Alkaline Phosphatase 79 U/L 10-118 Sgot (Ast) 27 U/L 3-40 SGPT (Alt) 29 U/L 7-50 Bilirubin, Total 0.40 mg/dL 0.30-1.20 Laboratory test 07/17/2012 [facility] Vitamin D, 31.4 ng/mL 30.0-100.0 45 finding 28 [facility] [address] [place] [address] [phone] Urinalysis W/ 07/17/2012 [facility] Urine Color YELLOW Yellow Micro (CX) [address] [place] [address] [phone] Urine Appearance CLEAR Clear Urine Specific [place] 1.016 1.005-1.030 Urine Leukocytes TRACE Abnormal Negative Urine Nitrite NEGATIVE Negative Urine PH 6.5 5.0-8.0 Urine Protein NEGATIVE mg/dL Negative Urine Glucose NEGATIVE mg/dL Negative Urine Ketones NEGATIVE mg/dL Negative Urine Urobilinogen NORMAL mg/dL NORMALor<1 Urine Bilirubin NEGATIVE Negative Urine Occult Blood NEGATIVE Negative WBC 2 /hpf 0-5 RBC 1 /hpf 0-3 Mucous Threads TRACE /lpf <1+ Egfr (Calculated) 07/17/2012 [facility] Estimated GFR (CALCULATED) [address] [place] [address] [phone] Egfr >60 46 Egfr, -Swedish >60 47 Umixd 07/17/2012 [facility] Microscopic, Reflex INDICATED [address] [place] [address] [phone] 1 2 red top serum poured off 2 This test was developed and its performance characteristics determined by [employer]. It has not been cleared or approved by the Food and Drug Administration. 3 This test was developed and its performance characteristics determined by [employer]. It has not been cleared or approved by the Food and Drug Administration. Detection Limit=1.0 4 RESULTS VERIFIED BY REPEAT ANALYSIS 5 Because ethnic data is not always readily available, this report includes an eGFR for both -Americans and non- Americans. The National Kidney Disease Education Program (NKDEP) does not endorse the use of the MDRD equation for patients that are not between the ages of 18 and 70, are , have extremes of body size, muscle mass, or nutritional status, or are non- or non-. According to the National Kidney Foundation, irrespective of diagnosis, the stage of the disease is based on the level of kidney function: Stage Description GFR(mL/min/1.73 m(2)) 1 Kidney damage with normal or decreased GFR 90 2 Kidney damage with mild decrease in GFR 60-89 3 Moderate decrease in GFR 30-59 4 Severe decrease in GFR 15-29 5 Kidney failure <15 (or dialysis) 6 [facility] Severe Sepsis and Septic Shock Management Bundle Measure requires all lactic acids initially measuring >2.0 mmol/L be repeated. 7 1 serum pour off from red top tube 8 Detection Limit=1.0 9 FASTING 10 1SST 11 Negative <0.9 Indeterminate 0.9 - 1.0 Positive >1.0 12 Negative <9.0 Equivocal 9.0 - 11.0 Positive >11.0 13 Negative <9.0 Equivocal 9.0 - 11.0 Positive >11.0 This test was developed and its performance characteristics determined by [employer]. It has not been cleared or approved by the Food and Drug Administration. 14 1 serum pour off from red top 15 Detection Limit=1.0 16 Because ethnic data is not always readily available, this report includes an eGFR for both -Americans and non- Americans. The National Kidney Disease Education Program (NKDEP) does not endorse the use of the MDRD equation for patients that are not between the ages of 18 and 70, are , have extremes of body size, muscle mass, or nutritional status, or are non- or non-. According to the National Kidney Foundation, irrespective of diagnosis, the stage of the disease is based on the level of kidney function: Stage Description GFR(mL/min/1.73 m(2)) 1 Kidney damage with normal or decreased GFR 90 2 Kidney damage with mild decrease in GFR 60-89 3 Moderate decrease in GFR 30-59 4 Severe decrease in GFR 15-29 5 Kidney failure <15 (or dialysis) 17 NOTE: Critical Troponin is now >0.03 ng/mL. 99th percentile=0.04 ng/mL Troponin results at [facility] and [facility] are not interchangeable. 18 [facility] Severe Sepsis and Septic Shock Management Bundle Measure requires all lactic acids initially measuring >2.0 mmol/L be repeated. 19 1 SST 20 According to ATP-III Guidelines, HDL-C >59 mg/dL is considered a negative risk factor for CHD. 21 Detection Limit=1.0 22 Test Performed by: [address] [address] D[employer] Table Person: Zesu Poole M.D. 23 REFERENCE VALUE 12.0 - 46.0 Test Performed by: [address] [address] D[employer] Table Person: Zeus Poole M.D. 24 FASTING; 1 sst; 1 purple top tube 25 CHOL/HDL Risk Ratio Levels MALE FEMALE 1/2 X Average 3.4 3.3 Average 5.0 4.4 2 X Average 9.5 7.0 3 X Average 24.0 11.0 26 Optimal under 100 mg/dl Near or above Optimal 100 - 129 mg/dl Borderline High 130 - 159 mg/dl High 160 - 189 mg/dl Very High above 190 mg/dl 27 LDL/HDL Risk Ratio Levels MALE FEMALE 1/2 X Average 1.0 1.5 Average 3.6 3.2 2 X Average 6.3 5.0 3 X Average 8.0 6.1 28 . Serum PSA results should be used only in conjunction with information available from the clinical evaluation of the patient and other diagnostic procedures. Values obtained with different assay methods or kits cannot be used interchangeably. Results obtained using [employer] ICMA methodology. 29 HGBA1C (%) GLUCOSE CONTROL <6 NORMAL >=6.5 SUGGESTIVE OF DIABETES 30 >59 mL/min/1.73m2 31 >59 mL/min/1.73m2 Note: Persistent reduction for 3 months or more in an eGFR <60 mL/min/1.73m2 defines CKD. Patients with eGFR values >=60 mL/min/1.73m2 may also have CKD if evidence of persistent proteinuria is present. Additional information may be found at www.kidney.org/professionals/kdoqi. 32 Serum levels of PSA measured using the [employer] DXI Hybritech immunoassay should not be interpreted as absolute evidence of the presence or absence of disease. The PSA value should be used in conjunction with other pertinent clinical diagnostic procedures. The values obtained with different assay methods or kits cannot be used interchangeably. 33 1 SST; 1 LAV 34 >59 mL/min/1.73m2 35 >59 mL/min/1.73m2 Note: Persistent reduction for 3 months or more in an eGFR <60 mL/min/1.73m2 defines CKD. Patients with eGFR values >=60 mL/min/1.73m2 may also have CKD if evidence of persistent proteinuria is present. Additional information may be found at www.kidney.org/professionals/kdoqi. 36 HGBA1C (%) GLUCOSE CONTROL <6 NORMAL >=6.5 SUGGESTIVE OF DIABETES 37 1 sst 38 >59 mL/min/1.73m2 39 >59 mL/min/1.73m2 Note: Persistent reduction for 3 months or more in an eGFR <60 mL/min/1.73m2 defines CKD. Patients with eGFR values >=60 mL/min/1.73m2 may also have CKD if evidence of persistent proteinuria is present. Additional information may be found at www.kidney.org/professionals/kdoqi. 40 RUN DATE: 08/16/12 [facility] LAB LIVE PAGE 1 RUN TIME: [address] [place] [address] Specimen Inquiry Name: ALLY PHELAN : [address]: Curry Contreras MD Acct: [id number] Unit: [id number] AGE: 66 Location: [facility] Re08/14/12 SEX: M Status: REG REF SPEC: [id number] TRUDI: 08/14/12-[address]: Curry Contreras MD REQ: [id number] RECD: 08/14/[id number] STATUS: SOUT _ ORDERED: LEVEL IV FINAL DIAGNOSIS Skin, right mid back, excision: Hemangioma. CLINICAL HISTORY Irregular PRE-OPERATIVE DIAGNOSIS Tagged at nine o'clock GROSS DESCRIPTION The specimen is received in formalin labeled Ally Phelan, and consists of an orientated skin ellipse measuring 0.6 x 0.6 x 0.3 cm. The suture is designated twelve o' clock. The three o'clock aspect is inked blue and the nine o'clock aspect is inked black. The specimen is inked, serially sectioned from twelve to six o'clock and submitted entirely, one cassette. Signed (signature on file) Jamir Valdes MD [id number] END OF REPORT * ML=Testing performed at Main Lab DEPARTMENT OF PATHOLOGY, [address] [place] [address] Jamir Valdes M.D. Director [facility] Permit #[id number] 41 FASTING; 2 sst; 1 urine container; 1 purple top tube 42 CHOL/HDL Risk Ratio Levels MALE FEMALE 1/2 X Average 3.4 3.3 Average 5.0 4.4 2 X Average 9.5 7.0 3 X Average 24.0 11.0 43 Optimal under 100 mg/dl Near or above Optimal 100 - 129 mg/dl Borderline High 130 - 159 mg/dl High 160 - 189 mg/dl Very High above 190 mg/dl 44 LDL/HDL Risk Ratio Levels MALE FEMALE 1/2 X Average 1.0 1.5 Average 3.6 3.2 2 X Average 6.3 5.0 3 X Average 8.0 6.1 45 Vitamin D deficiency has been defined by the [place] of Medicine and an Endocrine Society practice guideline as a level of serum 25-OH vitamin D less than 20 ng/mL (1,2). The Endocrine Society went on to further define vitamin D insufficiency as a level between 21 and 29 ng/mL (2). 1. IOM ([place] of Medicine). 2010. Dietary reference intakes for calcium and D. [place]: The National Academies Press. 2. Lisa MF, Brandie FELIX, Bogdan SPEARS, et al. Evaluation, treatment, and prevention of vitamin D deficiency: an Endocrine Society clinical practice guideline. JCEM. 2010; 96(7):1911-30. 46 >59 mL/min/1.73m2 47 >59 mL/min/1.73m2 Note: Persistent reduction for 3 months or more in an eGFR <60 mL/min/1.73m2 defines CKD. Patients with eGFR values >=60 mL/min/1.73m2 may also have CKD if evidence of persistent proteinuria is present. Additional information may be found at www.kidney.org/professionals/kdoqi. Procedures Date Code Description Status 11/26/2018 85106 Remove Impacted Cerumen Completed 06/05/2014 32707 Remove Impacted Cerumen Completed 08/14/2012 59840 Excise Benign Lesion <.6CM Trunk/Arm/Leg Completed 05/29/2007 88143192 Colonoscopy Completed Encounters Type Date Location Provider Dx Diagnosis Office Visit 11/26/2018 [facility] Office Kate Chavez, H61.23 Impacted cerumen, 2:30p PA bilateral H69.93 Unspecified Eustachian tube disorder, bilateral Office Visit 10/05/2018 10:00a [facility] Office Monalisa Foley Z00.01 [...] neoplasm of colon Office Visit 09/25/2018 3:20p [facility] Monalisa Foley J02.9 Acute pharyngitis, Valencia Gallo unspecified J30.2 Other seasonal allergic rhinitis Office Visit 05/04/2018 10:45a [facility] Tana Ortega 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, [employer]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, unspecified Z23 Encounter for immunization D51.8 Other vitamin B12 deficiency anemias Office Visit 03/15/2018 1:00p [facility] Monalisa Foley R00.2 Palpitations [place] Gallo Office Visit 08/29/2017 10:40a [facility] Office Monalisa Foley Z00.00 Encntr for general Valencia Gallo adult medical exam w/o abnormal findings I10 Essential (primary) hypertension G40.309 Gen idiopathic epilepsy, not intractable, w/o stat epi E78.2 Mixed hyperlipidemia M25.551 Pain in right hip Office Visit 07/14/2017 2:00p Main Office Roger Guillen 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 w/o bleeding Office Visit 06/01/2017 3:00p Main Office Julianna Pollock, R05 Cough ADULT CAREGIVER J20.9 Acute bronchitis, unspecified 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, ntrct, w/o stat epi Office Visit 01/31/2017 3:10p [facility] Roger Ward R10.13 Epigastric pain Valencia Fernández Office Visit 12/21/2016 9:40a Main Office Monalisa Foley I10 Essential [place] Gallo (primary) hypertension R23.8 Other skin changes M25.551 Pain in right hip R25.2 Cramp and spasm Office Visit 08/13/2016 10:45a Main Office Lakshmi Valadez M70.42 Prepatellar ADULT CAREGIVER bursitis, left knee Office Visit 06/23/2016 10:40a [facility] Monalisa Foley Z00.00 Encntr for Valencia Gallo general adult medical exam w/o abnormal findings I10 Essential (primary) hypertension G40.409 Oth generalized epilepsy, not intractable, w/o stat epi E55.9 Vitamin D deficiency, unspecified D51.8 Other vitamin B12 deficiency anemias Z12.5 Encounter for screening for malignant neoplasm of prostate Office Visit 04/18/2016 11:00a Main Office Monalisa Foley G40.409 Oth generalized Cleo, M.D. epilepsy, not intractable, w/o stat epi R20.8 Other disturbances of skin sensation Office Visit 04/05/2016 10:00a [facility] Julianna H61.23 Impacted Maris, ADULT CAREGIVER cerumen, bilateral Office Visit 12/10/2015 2:30p [facility] Nedra Ahuja, Z48.00 Encounter for Afnp-C change or removal of nonsurg wound dressing Office Visit 06/03/2015 8:00a Main Office Gene Maurice M.D. Z00.00 Encntr for general adult medical exam w/o abnormal findings Z23 Encounter for immunization Office Visit 02/19/2015 9:40a Main Office Gene Maurice M.D. 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 455.6 Hemorrhoids Unspec W/O Complication V68.89 Encounter For Other Spec Administrative Purpose V06.5 Tetanus Diphtheria (DT) V05.3 Viral Hepatitis Vaccination & Inoculation Office Visit 10/18/2013 3:30p Main Office Lakshmi PEGGY ValadezP 214.8 Lipoma Other Specified Sites Office Visit 09/26/2013 8:10a Main Office Curry Contreras, V70.0 Examination General M.D. Medical Routine AT Health Care Facility V77.91 Screening For Lipoid Disorders V76.44 Screening For Malig Manpreet Prostate V76.51 Screening For Malignant Neoplasms Colon 401.1 Hypertension Benign 790.21 Impaired Fasting Glucose 733.90 Bone & Cartilage Disorder Unspec v03.82 Streptococcus Pneumoniae Vaccination Spec Other Office Visit 05/09/2013 3:20p Main Office Curry Cook 401.1 Hypertension Ileana Contreras M.D. 733.90 Bone & Cartilage Disorder Unspec Office Visit 04/02/2013 11:40a [facility] Curry Cook 709.9 Skin & Subcutaneous Valencia Contreras Tissue Disorders Unspec 702.19 Seborrheic Keratosis Other Office Visit 10/17/2012 9:30a [facility] Curry Cook 733.90 Bone & Cartilage Valencia Contreras Disorder Unspec 401.1 Hypertension Benign 790.21 Impaired Fasting Glucose Office Visit 08/29/2012 8:50a [facility] Curry Cook 709.9 Skin & Subcutaneous Valencia Contreras Tissue Disorders Unspec 401.1 Hypertension Benign 790.21 Impaired Fasting Glucose 275.41 Hypocalcemia 601.9 Prostatitis Unspec Office Visit 08/14/2012 11:00a [facility] Office Curry Cook 709.9 Skin & Subcutaneous Valencia Contreras Tissue Disorders Unspec 276.7 Hyperpotassemia 790.21 Impaired Fasting Glucose 228.01 Hemangioma Skin & Subcutaneous Tissue Office Visit 07/12/2012 1:50p Main Office Curry Cook V70.0 Examination General Valencia Contreras Medical Routine AT Health Care Facility 709.9 Skin & Subcutaneous Tissue Disorders Unspec V77.91 Screening For Lipoid Disorders 269.1 Vitamin Deficiency Other 530.81 Esophageal Reflux 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 Colonoscopy scheduled for January. Will get Ultrasound of the abdomen to see if the bump is a lipoma. Call with any increase in pain, change in stools, or other concerning symptoms.AllComments:PCMHMedication Management Patient Understands medications he's taking? Yes [...] barriers to meeting treatment goals? No If Yes, please describe:4. Self-Management goals as described to the patient: Yes As always, we strongly encourage a healthy diet and making physical activity a part of your every day life. If you have questions about how or where to start, please contact the office.
--- NOTE | 2019-01-06 08:36 | ED ---
Neurological HPI - HPI Summary HPI Summary: Samuel Mora called at 08:28, and pt by was seen at 0828. This patient is a 73 year old M presenting to [facility] accompanied by with a chief complaint of worsening weakness on left side since 644. Pt woke up at 06: 30 and felt fine, and it was not until he was making coffee that he felt off. Patient reports dizziness. Pt has no PMHX of dan, and CAD. Pt has a PMHx of HTN and hemangiomas. Pt is not on blood thinners. Per triage, the patient rates the pain 9/10 in severity. - History of Current Complaint Chief Complaint: EDWeakness Stated Complaint: WEAKNESS Time Seen by Provider: 01/06/19 08:28 Last Known Well Date: 644 Hx Obtained From: Patient Onset/Duration: Gradual Onset, Started hours ago, Still Present Timing: Constant Onset Severity: Moderate Current Severity: Severe Pain Intensity: 9 Pain Scale Used: 0-10 Numeric Character: Weak, Dizzy Associated Signs and Symptoms: Positive: Weakness - left side, Dizziness - Allergy/Home Medications Allergies/Adverse Reactions: Allergies Allergy/AdvReac Type Severity Reaction Status Date / Time Iodinated Contrast Media Allergy Difficulty Verified 01/06/19 08:24 [Iodinated Contrast- Oral Breathing/Wheezing and IV Dye] losartan Allergy Unknown Verified 01/06/19 08:24 Reaction Details Home Medications: Home Medications L.acidoph,Paracasei, B.lactis [Probiotic] 1 each PO DAILY 01/06/19 [History Confirmed 01/06/19] PMH/Surg Hx/FS Hx/Imm Hx Endocrine/Hematology History: Denies: Hx Anticoagulant Therapy, Hx Diabetes, Hx Thyroid Disease Cardiovascular History: Reports: Hx Hypertension Denies: Hx Congestive Heart Failure, Hx Deep Vein Thrombosis, Hx Myocardial Infarction, Hx Pacemaker/ICD Respiratory History: Denies: Hx Asthma, Hx Chronic Obstructive Pulmonary Disease (COPD), Hx Lung Cancer, Hx Pneumonia, Hx Pulmonary Embolism GI History: Reports: Hx Gastroesophageal Reflux Disease Denies: Hx Gall Bladder Disease, Hx Gastrointestinal Bleed, Hx Ulcer, Hx Urosepsis History: Reports: Hx Benign Prostatic Hyperplasia, Other Problems/ Disorders - TURP 2012 Denies: Hx Kidney Stones, Hx Renal Disease Musculoskeletal History: Reports: Hx Osteoporosis, Other Musculoskeletal History - osteopenia Denies: Hx Rheumatoid Arthritis Sensory History: Reports: Hx Contacts or Glasses, Hx Hearing Aid Opthamlomology History: Reports: Hx Contacts or Glasses Neurological History: Reports: Hx Seizures, Other Neuro Impairments/Disorders - 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 Denies: Hx Dementia, Hx Migraine, Hx Transient Ischemic Attacks (TIA) Psychiatric History: Denies: Hx Anxiety, Hx Depression, Hx Panic Disorder, Hx Schizophrenia, Hx Bipolar Disorder - Cancer History Cancer Type, Location and Year: Melanoma - Surgical History Surgery Procedure, Year, and Place: TURP-2010; TONSILECTOMY AGE 7 Infectious Disease History: No Infectious Disease History: Denies: Traveled Outside the [place] in Last 30 Days - Family History Known Family History: Positive: Hypertension, Other - POSITIVE: CVA; NEGATIVE: CANCER AND THROMBOSIS - Social History Lives: With Family Alcohol Use: Daily Alcohol Amount: 1x beer per day Substance Use Type: Reports: None Hx Tobacco Use: No Smoking Status (MU): Never Smoked Tobacco Review of Systems Negative: Fever Neurological: Other - pos - dizziness Positive: Weakness - left side All Other Systems Reviewed And Are Negative: Yes Physical Exam - Summary Physical Exam Summary: GENERAL: Patient is a well-developed and nourished M who is lying comfortable in the stretcher. Patient is not in any acute respiratory distress. HEAD AND FACE: Normocephalic EYES: PERRLA, EOMI x 2. EARS: Hearing grossly intact. MOUTH: Oropharynx within normal limits. NECK: Supple, trachea is midline, no adenopathy, no JVD, no carotid bruit. CHEST: Symmetric, no tenderness at palpation LUNGS: Clear to auscultation bilaterally. No wheezing or crackles. CVS: Regular rate and rhythm, S1 and S2 present, no murmurs or gallops appreciated. ABDOMEN: Soft, non-tender. Bowel sounds are normal. No abnormal abdominal pulsations. EXTREMITIES: Full ROM in all major joints, no edema, no cyanosis or clubbing. NEURO: Alert and oriented x 3. No acute neurological deficits. Slurs some words. Cranial nerves II-XII grossly intact, no dysmetria finger to nose, nml heel to obrien SKIN: Dry and warm Triage Information Reviewed: Yes Vital Signs On Initial Exam: Initial Vitals Temp Pulse Resp BP Pulse Ox 98.1 F 65 16 169/103 98 01/06/19 08:19 01/06/19 08:19 08/11/19 08:19 01/06/19 08:19 01/06/19 08:19 Vital Signs Reviewed: Yes - [place] Coma Scale Best Eye Response: 4 - Spontaneous Best Motor Response: 6 - Obeys Commands Best Verbal Response: 5 - Oriented Coma Scale Total: 15 Diagnostics - Vital Signs Vital Signs Temp Pulse Resp BP Pulse Ox 01/06/19 08:19 98.1 F 65 16 169/103 98 - Laboratory Result Diagrams: 01/06/19 08:48 01/07/19 06:46 Lab Statement: Any lab studies that have been ordered have been reviewed, and results considered in the medical decision making process. - Radiology CXR Radiology Interpretation Completed By: Radiologist Summary of Radiographic Findings: CXR reveals, per radiologist, IMPRESSION: Stigmata of obstructive lung disease. No acute pulmonary or cardiac process evident. ED physician has reviewed this radiology report. - CT Brain CT CT Interpretation Completed By: Radiologist Summary of CT Findings: Brain CT reveals, per radiologist, IMPRESSION: Negative for intracranial hemorrhage. Multiple previously documented cavernous angiomas based on comparison with the October 05, 2016 CT. Old lacunar infarct at the LEFT basal ganglia. No compelling CT stigmata of acute or subacute ischemic infarct. ED physician has reviewed this radiology report. - EKG 0849 Cardiac Rate: Bradycardia EKG Rhythm: Sinus Rhythm EKG Comparison: No Significant Change Summary of EKG Findings: EKG at 0849 reveals sinus bradycardia 57 bpm, PACs, Left axis deviation, similar to previous EKG on 11/30/18 1033 Cardiac Rate: Bradycardia EKG Rhythm: Sinus Rhythm Summary of EKG Findings: EKG at 10:33 reveals sinus bradycardia 55 bpm, LVH. NIH Scale - NIH Scale Level of Consciousness: Alert/Keenly Responsive Ask Patient the Month and His/Her Age: Both Correct Ask Pt to Open/Close Eyes and Credit Controller/Release Non-Paretic Hand: Both Correctly Best Gaze (Only Horizontal Eye Movement): Normal Visual Field Testing: No Visual Loss Facial Paresis-Pt to Smile & Close Eyes or Grimace Symmetry: Normal/Symmetrical Motor Function - Right Arm: No Drift-Holds 10 Seconds Motor Function - Left Arm: No Drift-Holds 10 Seconds Motor Function - Right Leg: No Drift-Holds 10 Seconds Motor Function - Left Leg: No Drift-Holds 10 Seconds Limb Ataxia-Must be out of Proportion to Weakness Present: Absent Sensory (Use Pinprick to Test Arms/Legs/Trunk/Face): Normal Best Language (Describe Picture, Name Items): No Aphasia Dysarthria (Read Several Words): Slurs Some Words Extinction and Inattention: No Abnormality Total Score: 1 Re-Evaluation - Re-Evaluation First Eval Re-Evaluation Time: 09:47 Comment: Discussed plan of care with pt. Course/Dx - Course Course Of Treatment: This patient is a 73 year old M presenting to [facility] accompanied by with a chief complaint of worsening weakness on left side since 644. Physical exam findings. Slurs some words. Blood work obtained. APTT is 40.8, and POC Glucose is 112. UA obtained. Ur Specific [place] is 1.004 , and Urine Blood is 1+. EKG at 0849 reveals sinus bradycardia 57 bpm, PACs, Left axis deviation, similar to previous EKG on 11/30/18. EKG at 10:33 reveals sinus bradycardia 55 bpm, LVH. CXR reveals, per radiologist, IMPRESSION: Stigmata of obstructive lung disease. No acute pulmonary or cardiac process evident. ED physician has reviewed this radiology report. Brain CT reveals, per radiologist, IMPRESSION: Negative for intracranial hemorrhage. Multiple previously documented cavernous angiomas based on comparison with the October 052016 CT. Old lacunar infarct at the LEFT basal ganglia. No compelling CT stigmata of acute or subacute ischemic infarct. Discussed pt care with Dr. Frost, neurologist at [facility], who agrees pt is not a TPA candidate. Suggested CTA Head and Neck, but pt is allergic to contrast, so then suggested MRI/MRA routine. Dr. Patricia also suggests repeated CT scan in 6 hours, especially since the MRI results will only be available tomorrow due to multiple cavernous angiomas, and the CT would make sure that a small bleed is not developing. Discussed pt case with Dr. Vo, who accepts pt for admission. Case discussed with hospitalist. I discussed results with patient. The patient agrees with this plan - Diagnoses Provider Diagnoses: Stroke During the Visit The Following Alert/Code Occurred: Code Mora - 08:28 - Physician Notifications Discussed Care Of Patient With: Dr. Frost Time Discussed With Above Provider: 09:06 Instructed by Provider To: Other - Discussed pt care with Dr. Frost, neurologist at [facility], who agrees pt is not a TPA candidate. Suggested CTA Head and Neck, but pt is allergic to contrast, so then suggested MRI/MRA routine. 09:32- Dr. Patricia suggest repeated CT scan in 6 hours, especially since the MRI results will only be available tomorrow due to multiple cavernous angiomas, and the CT would make sure that a small bleed is not developing. 09: 40 - Discussed pt case with Dr. Hassan, who accepts pt for admission. - Critical Care Time Critical Care Time: 30-74 min Discharge - Sign-Out/Discharge Documenting (check all that apply): Patient Departure - Admit All imaging exams completed and their final reports reviewed: Yes Patient Received Moderate/Deep Sedation with Procedure: No - Discharge Plan Condition: Fair Disposition: ADMITTED TO [facility] - Billing Disposition and Condition Condition: FAIR Disposition: Admitted to [facility] - Attestation Statements Document Initiated by Anisha: Yes Documenting Scribe: Domitila Gomez Provider For Whom Anisha is Documenting (Include Credential): Dr. Nancy Mayer MD Scribe Attestation: Domitila Jon scribed for Dr. Nancy Mayer MD on 01/07/19 at 1200. Scribe Documentation Reviewed: Yes Provider Attestation: The documentation as recorded by the Domitila porter accurately reflects the service I personally performed and the decisions made by , Dr. Nancy Mayer MD Status of Scribe Document: Viewed
[2019-01-06 08:57] LABS: ABS Basophils 0.1 10^3/ul (0-0.2); ABS Eosinophils 0.2 10^3/ul (0-0.6); ABS Lymphocytes 2.1 10^3/ul (1.0-4.8); ABS Monocytes 0.7 10^3/ul (0-0.8); ABS Neutrophils 3.4 10^3/ul (1.5-7.7); Hematocrit 46 % (42-52); Hemoglobin 15.4 g/dL (14.0-18.0); Lymphocyte % 32.7 %; Mean Corpuscular HGB Conc 33 g/dL (31-36); Mean Corpuscular Hemoglobin 30 pg (27-31); Mean Corpuscular Volume 90 fL (80-94); Mean Platelet Volume 8.9 fL (7.4-10.4); Nucleated Red Blood Cells % 0.2; Platelet Count 172 10^3/uL (150-450); Red Blood Count 5.12 10^6 /uL (4.18-5.48); Red Cell Distribution Width 14 % (10-15); White Blood Count 6.5 10^3/uL (3.5-10.8)
[2019-01-06 09:05] LABS: Activated Partial Thrombo Time 40.8 seconds (26.0-38.0); INR 0.94 (0.82-1.09)
[2019-01-06 09:18] LABS: Albumin 4.7 g/dL (3.2-5.2); Albumin/Globulin Ratio 1.8 (1-3); BUN/Creatinine Ratio 15.1 (8-20); Calcium 9.5 mg/dL (8.6-10.3); EGFR African American 72.9 (>60); EGFR Non-African American 60.3 (>60); Globulin 2.6 g/dL (2-4); HDL Cholesterol 67.2 mg/dL; Potassium 4.1 mmol/L (3.5-5.0); Total Bilirubin 0.4 mg/dL (0.2-1.0); Total Protein 7.3 g/dL (6.4-8.9)
[2019-01-06 09:51] LABS: Urine Appearance Clear; Urine Bacteria Absent (Absent); Urine Bilirubin Negative (Negative); Urine Blood 1+ (Negative); Urine Color Straw; Urine Glucose Negative (Negative); Urine Ketones Negative (Negative); Urine Nitrite Negative (Negative); Urine Protein Negative (Negative); Urine Red Blood Cell Trace(0-2/hpf) (Absent); Urine Specific Gravity 1.004 (1.010-1.030); Urine Urobilinogen Negative (Negative); Urine White Blood Cell Absent (Absent)
[2019-01-06] MEDS ORDERED: Losartan TAB* 25 MG PO SCH (11:00)
[2019-01-06] MEDS ORDERED: Hydrochlorothiazide TAB* 25 MG PO SCH (12:00)
--- NOTE | 2019-01-06 14:58 | HP ---
CC: Dr. Gallo * [facility] MEDICINE HISTORY AND PHYSICAL: DATE OF ADMISSION: 01/06/19 PRIMARY CARE PROVIDER: Dr. Gallo. ATTENDING PHYSICIAN: Dr. Jameel Hassan * (dictation provided by Bailey Meyer NP). CHIEF COMPLAINT: Balance abnormality with concern for sensation change in the left lower extremity. HISTORY OF PRESENT ILLNESS: Mr. Phelan is a 73-year-old male with past medical history of cavernous angiomas, seizure disorder, and hypertension, who presented to the hospital today with concern for sudden onset this morning of balance problems and difficulty moving his left leg. Mr. Phelan states he was in his normal state of health yesterday though there has been some ongoing concerns. He and his have noted that his blood pressure has been elevated recently and they were concerned that his heart rate seemed low (running 50-60) . For this reason, he has seen Dr. Gallo and the recommendation was for him to follow up with Cardiology outpatient. He has an appointment on Monday. He has been having some issues with dizziness per his report and headache as well over the past 1 to 2 weeks. This morning, he had sudden onset of balance difficulties. It is difficult for him to describe, but he states it felt that the sensation and movement was off to his left leg. He did not have any other symptoms. He was brought to the emergency room by his . He denies chest pain, shortness of breath, nausea, vomiting, diarrhea, or abdominal pain. He has no headache now. He denies vision changes. There is no slurred speech or change to speech noted. In the emergency room, Mr. Phelan had a CT of his brain which showed the chronic changes associated with his cavernous malformations and an old lacunar infarct to the left basal ganglia, but no acute changes noted. He had an EKG which showed a sinus rhythm to sinus bradycardia. His heart rates has been running 50s to 60s. Labs showed are normal. White blood cell count, no anemia. His creatinine is slightly elevated at 1.19. BUN is normal. Urine shows no evidence of infection. His blood pressure has been running high in the ED, as high as 177/100, but now is 150/91. PAST MEDICAL HISTORY: 1. History of cavernous angiomas. 2. History of seizure disorder with last seizure in 1981. 3. GERD. 4. Recent eye surgery for lazy eye with Dr. Fernando. MEDICATIONS: Medications outpatient are: 1. Calcium carbonate 1 tab p.o. daily. 2. Magnesium oxide 1 tab daily. 3. Probiotic 1 tab daily. 4. Multivitamin 1 tab daily. 5. Amlodipine 10 mg p.o. daily. 6. Cholecalciferol 1000 units p.o. b.i.d. 7. Cyanocobalamin 1000 mcg p.o. daily. 8. Lamotrigine XR 200 mg p.o. b.i.d. 9. Levetiracetam XR 1500 mg p.o. b.i.d. 10. Pantoprazole 40 mg p.o. daily. ALLERGIES: IODINATED CONTRAST DYE and LOSARTAN. SOCIAL HISTORY: The patient is a former smoker but he quit at age 25. No significant alcohol and no drug use. He lives with his who is his healthcare proxy. REVIEW OF SYSTEMS: A 14-point review of systems was completed with Mr. Phelan and all those not mentioned above were negative. PHYSICAL EXAMINATION GENERAL: Mr. Phelan is lying in the bed with at the bedside, in no acute distress. VITAL SIGNS: Temperature 98.2, pulse rate 58, respiratory rate 16, O2 saturation 96% on room air, blood pressure 150/91. LUNGS: Clear to auscultation bilaterally with no accessory muscle use and good aeration. HEART: S1, S2. No murmur, rub, or gallop and regular. ABDOMEN: Soft, nontender with bowel sounds positive x4. EXTREMITIES: No cyanosis or edema. NEUROLOGIC: He is alert. He is oriented x3. He moves all extremities equally. There is no facial asymmetry or focal weakness. Extraocular movements are intact. His pupils are equal. He has intact sensation to upper and lower extremities. He has no ataxia noted in the upper or lower extremities. SKIN: Intact. DIAGNOSTIC STUDIES/LAB DATA: WBC 6.5, hemoglobin 15.4, hematocrit 46, platelet count 172. INR 0.94. Sodium 140, potassium 4.1, chloride 105, serum bicarbonate 28, BUN 18, creatinine 1.19. Glucose 117. Troponin 0.00. Urine shows no evidence of infection. CT brain is read per above, as is the EKG. ASSESSMENT: Mr. Phelan is a 73-year-old male who presents today to the hospital with transient left-sided weakness or numbness. Our plans are for observation in the hospital for the followin. Transient left-sided weakness/numbness: Our concern is for transient ischemic attack; however, given his history of arteriovenous malformation, he is not eligible for use of aspirin or other anticoagulant or antiplatelet agents. Our plan will be to reassess for hemorrhagic stroke with a repeat CT brain in 6 hours and then we will reassess his vasculature with MRA of head and brain tomorrow. He is not a candidate for CTA as he has contrast dye allergy. His case has been reviewed with Dr. Toth, and he will be seeing the patient in consultation after the MRA is complete. The patient will have neurological checks. I am concerned about his high blood pressure especially the diastolic running 90s to 100. I plan to adjust his blood pressure medications as per below. 2. Hypertension: The patient has had some longstanding uncontrolled hypertension. He is on amlodipine 10 mg only. He has planned followup with Cardiology on Monday for the purpose of adjusting his medications. He states that he had elevated potassium and losartan. He reports cough with lisinopril. Given his low heart rate, this does limit the potential agents to use. I would like to try hydrochlorothiazide today. I realize that his creatinine is slightly elevated, and we will monitor that closely and we will recheck tomorrow. I would like to try just a gentle dose of 12.5 mg as I would like some improvement in blood pressure control but not any dramatic lowering given his neurological symptoms. 3. Sinus bradycardia: The patient's heart rate has been running into the 50s at least since 2018. It does not appear that this is driving any of the symptoms that are described and he is planning to follow up with Cardiology outpatient. He will have telemetry monitoring. 4. Recent eye surgery: Continue polymyxin. 5. Seizure disorder: We will plan to continue home medications. 6. Gastroesophageal reflux disease: Continue pantoprazole. 7. DVT prophylaxis with SCDs. 8. Code status: Full code. TIME SPENT: Approximately 60 minutes were spent on the admission of this patient, more than half the time spent with the patient at the bedside reviewing the events leading up to this hospitalization, performing the physical examination, and reviewing my plan of care. BAILEY MEYER NP [id number]/CPS #: [id number] ADDENDUM: Patient and his were going through his home meds when they realized that Mr Phelan made a mistake in loading his weekly pill box which resulted in him taking no amlodipine and taking an extra lamictal each night. Plan to stop hctz and resume amlodipine tonight. As lamictal levels are a send out, I do not see the utility in checking a lamictal level. I question whether or not this explain his symptoms. Dr Toth will be seeing the patient in consultation tomorrow. IONA
[2019-01-06] MEDS ORDERED: amLODIPine TAB* 5 MG PO SCH ×2 (15:03→21:00)
[2019-01-06] MEDS: LEVETIRACETAM 500 MG PO SCH (20:13)
[2019-01-06] MEDS: LAMOTRIGINE 200 MG PO SCH (20:13)
[2019-01-06] MEDS: Cholecalciferol TAB* 1000 UNITS PO SCH (20:14)
[2019-01-06] MEDS ORDERED: Polymyx/Trimethoprim OPTH* 10 ML BTL BOTH EYES SCH (21:00)
[2019-01-07 07:20] LABS: BUN/Creatinine Ratio 11.6 (8-20); Calcium 9.5 mg/dL (8.6-10.3); EGFR African American 78.2 (>60); EGFR Non-African American 64.6 (>60); Potassium 3.9 mmol/L (3.5-5.0)
[2019-01-07] MEDS: LAMOTRIGINE 200 MG PO SCH ×2 (08:37→21:48)
[2019-01-07] MEDS: LEVETIRACETAM 500 MG PO SCH ×2 (08:37→21:48)
[2019-01-07] MEDS: Pantoprazole TAB * 40 MG TAB PO SCH (08:38)
[2019-01-07] MEDS: Cyanocobalamin TAB* 500 MCG PO SCH (08:38)
[2019-01-07] MEDS: Cholecalciferol TAB* 1000 UNITS PO SCH ×2 (08:38→21:47)
[2019-01-07] MEDS ORDERED: amLODIPine TAB* 5 MG PO SCH (09:00)
--- NOTE | 2019-01-07 14:20 | PN ---
Subjective Date of Service: 01/07/19 Interval History: Patient feels his gait was normal when walking today. He endorses he has had intermittent double vision, but this has been an ongoing issue since strabismus surgery and denies issues today. Mentions abdominal pain this morning which was relieved after eating breakfast. Denies chest pain, difficulty breathing, n/v, headache. Patient and report patient has accidentally been taking additional short acting lamictal instead of his amlodipine for the last week. Objective Active Medications: Amlodipine Besylate (Norvasc Tab*) 10 mg PO DAILY [facility] Atorvastatin Calcium (Lipitor*) 40 mg PO 1700 [facility] Cholecalciferol (Vitamin D Tab*) 1,000 units PO BID [facility] Last Admin: 01/07/19 08:38 Dose: 1,000 units Cyanocobalamin (Vitamin B12 Tab*) 1,000 mcg PO DAILY [facility] Last Admin: 01/07/19 08:38 Dose: 1,000 mcg Lamotrigine (Lamictal Xr (Nf)) 200 mg PO BID [facility] Last Admin: 01/07/19 08:37 Dose: 200 mg Levetiracetam (Keppra Xr Tab(Nf)) 1,500 mg PO BID [facility]; Protocol Last Admin: 01/07/19 08:37 Dose: 1,500 mg Pantoprazole Sodium (Protonix Tab*) 40 mg PO DAILY [facility] Last Admin: 01/07/19 08:38 Dose: 40 mg Polymyxin/Trimethoprim Sulfate (Polytrim Ophth*) 1 drop BOTH EYES 2100 [facility] Last Admin: 01/06/19 20:11 Dose: 1 drp Vital Signs - 8 hr 01/07/19 01/07/19 01/07/19 06:56 06:58 07:15 Temperature 97 F Pulse Rate 50 Respiratory 18 20 Rate Blood Pressure 143/78 (mmHg) O2 Sat by Pulse 96 97 Oximetry 01/07/19 12:11 Temperature 98.0 F Pulse Rate 64 Respiratory 20 Rate Blood Pressure 138/78 (mmHg) O2 Sat by Pulse 96 Oximetry Oxygen Devices in Use Now: None Appearance: Thin, elderly white male who appears younger than stated age, laying upright in bed appearing in NAD Eyes: No Scleral Icterus, PERRLA Ears/Nose/Mouth/Throat: Mucous Membranes Moist Neck: NL Appearance and Movements; NL JVP Respiratory: Symmetrical Chest Expansion and Respiratory Effort, Clear to Auscultation Cardiovascular: NL Sounds; No Murmurs; No JVD, RRR Abdominal: - - abd soft, nontoender, nondistended Extremities: No Edema, No Clubbing, Cyanosis Skin: No Rash or Ulcers Neurological: Alert and Oriented x 3, NL Sensation, NL Muscle Strength and Tone Result Diagrams: 01/06/19 08:48 01/07/19 06:46 Assess/Plan/Problems-Billing Assessment: 73 yo male with PMHx cavernous angioma, seizure disorder, and HTN presents with sudden onset of balance issues with left sided weakness. - Patient Problems (1) Left-sided weakness Current Visit: Yes Status: Acute Code(s): R53.1 - WEAKNESS SNOMED Code(s) : 339771242 Comment: -Patient with sudden onset of gait disturbance related to left-sided weakness -Possible CVA vs TIA -MRA head and neck does not rule out CVA, MRI brain pending -echo with bubble study pending -started atorvastatin as LDL is 100 -ASA and plavix contraindicated d/t cavernous angiomas -telemetry reveals atrial arrhythmia, which may be a contributing factor, will repeat ekg tomorrow -symptoms resolved today, PT evaluated and pt has no needs (2) Seizure disorder Current Visit: Yes Status: Acute Code(s): G40.909 - EPILEPSY, UNSP, NOT INTRACTABLE, WITHOUT STATUS EPILEPTICUS SNOMED Code(s): 138782813 Comment: -in setting of cavernous angiomas -patient taking additional lamictal instead of amlodipine due to medication mix- up -Dr. Toth does not believe one week of additional lamictal would've caused symptom onset yesterday, sxs would've onset earlier -continue lamictal and keppra -seizure precautions (3) Hypertension Current Visit: Yes Status: Acute Code(s): I10 - ESSENTIAL (PRIMARY) HYPERTENSION SNOMED Code(s): 07956360 Comment: -hypertensive at admission, though patient was apparently not taking amlodipine for 1 week due to medication issue at home -received HCTZ one dose yesterday -continue amlodipine -normotensive today (4) DVT prophylaxis Current Visit: Yes Status: Acute Code(s): Z29.9 - ENCOUNTER FOR PROPHYLACTIC MEASURES, UNSPECIFIED SNOMED Code(s): 466688665 Comment: -contraindicated due to cavernous angiomas -SCDs (5) Full code status Current Visit: Yes Status: Acute Code(s): Z78.9 - OTHER SPECIFIED HEALTH STATUS SNOMED Code(s): 404628975 Status and Disposition: inpatient pending imaging
--- NOTE | 2019-01-07 14:42 | CONS ---
CONSULTATION REPORT: DATE OF CONSULT: 01/07/19 PATIENT OF: Dr. Gallo, Dr. Rivera. HISTORY OF PRESENT ILLNESS: This is a 73-year-old man with a history of cavernous hemangioma, status post bleeding, status post seizure disorder secondary to the cavernous hemangioma, and hypertension. For the past week, he has felt a little bit off balance and dizzy, and it is sometimes unclear whether this is lightheadedness or unsteadiness. His blood pressure has been elevated recently with low heart rate. Of note, they have just discovered when he came into the hospital that instead of taking his amlodipine, he had been taking a discontinued form of Lamictal along with his regular Lamictal at a total dose of 600 mg a day instead of 400 mg a day. He has since stopped that and he is feeling better; however, he had taken the extra doses for the past 10 days' time and the last time he took the extra 200 was the night before his symptoms began yesterday morning. He noted that when he came down the stairs yesterday morning, his balance was good and that without taking any Lamictal, his symptoms got acutely worse. With this sudden onset of balance difficulties , it was hard for him to walk and he actually crawled. He had some difficulties moving his left leg as well. He feels back to normal at this point. In addition to his cavernous hemangiomas, the seizure disorder, his GERD, he has had recent surgery for an esotropia. MEDICATIONS: At home include: 1. Calcium carbonate 1 tab daily. 2. Mag-Oxide 1 tab daily. 3. Probiotic 1 tab daily. 4. Amlodipine 10 mg p.o. daily, but he had been off of that by mistake as described above. 5. Calciferol 1000 units twice a day. 6. Cyanocobalamin 1000 mcg daily. 7. Lamotrigine XR 200 mg b.i.d. 8. Keppra XR 1500 mg b.i.d. 9. Pantoprazole 40 mg daily. ALLERGIES: He is allergic to IODINATED CONTRAST DYE and LOSARTAN. SOCIAL HISTORY: He quit smoking at age 25. He does not drink or use drugs. He lives with his . REVIEW OF SYSTEMS: Negative in all 14 spheres other than the HPI. PHYSICAL EXAM: Temperature 98, pulse 64, respirations 20, blood pressure 138/ 78. He is alert and oriented with normal speech and comprehension. Cranial nerves II through XII were intact. No nystagmus is noted. No visual field cuts. Discs were sharp. Motor exam revealed normal tone and strength. He is slightly clumsy bilaterally, but there was no focal deficit on rapid alternating movement or finger- to-nose. Sensation intact to light touch. No pronator drift. His gait was normal, though slightly unsteady on turns. Chest : Clear. Cardiovascular: Regular rate and rhythm. Abdomen soft with positive bowel sounds. DIAGNOSTIC STUDIES/LAB DATA: I reviewed his CT and his MRA/MRI. His MRA was significant showing multiple supra and infratentorial cavernomas with chronic blood products bit unchanged. The MRI scan show the cavernous angiomas with the largest lesion being in the left temporal lobe. There was no acute ischemic stroke noted, but the study done was an MRA, so not a full MRI scan was done. His labs include an LDL of 100, HDL of 67, creatinine 1.12, normal lactic acid, normal liver function test, normal CBC. PTT 40.8, INR 0.94. UA was negative. IMPRESSION AND PLAN: Rafy's story is complicated in that he was inadvertently taking 200 mg extra Lamictal every day; this could cause him to be dizzy and off balance like he was, but I am still concerned that this represented an ischemic stroke since his symptoms occurred acutely on Monday morning and he had not taken any additional Lamictal since the night before, and when he first woke up he was not having those symptoms. So the timing is not exactly correct for it being Lamictal toxicity. I think some of the balance issues and also the hypertension he was having the week before was because he was missing his amlodipine and taking Lamictal. Given the uncertainty especially, I would not treat him with either aspirin or Plavix and would not do that anyway because of his numerous cavernous angiomas, some of which have bled. He should still have an echo with bubble study. He is seeing a battalion fire chief tomorrow, because a new murmur had been detected, this would be more for informational purposes, and if he has something like a patent foramen ovale, then when he goes on a long trips, he would make sure to avoid situations where he would be more likely to have a DVT. We then discussed with him whether to get an MRI scan on him to see if there is an acute stroke able to be documented on a full MRI scan. This would be of use if there was a clear ischemic stroke, I would be more sure to stay on his statin and controlling his LDL with a target of 70. I think he should go on statin, but it is hard to know if he has side effects from the statin, how aggressive to be at this point. Follow up will be through his neurologist, Dr. Rivera. Thank you for sharing his case. [id number]/[facility] #: [id number] I[place]
[2019-01-07] MEDS: amLODIPine TAB* 5 MG PO SCH (16:44)
--- NOTE | 2019-01-07 16:49 | ECHO ---
*[facility]* [place] [address] Fax #: [phone] Transthoracic Echocardiogram Patient: Rafy Phelan : 1945 Study Date: 01/07/2019 Age: 73 Gender: M HR: 65 bpm Height: 66 in /167.6 cm BSA: 1.75 m^2 Weight: 146.7 lb /66.7 kg BMI: 23.7 kg/m^2 *Ice Platform Supervisor: * Lien Perry [facility] *Referring Physician: * O'Vidya Maddox *Reading Physician: * Jacobo Renya MD Indications: TIA. History: Seizures. Cavernous angiomas. Risk factors: Hypertension. Conclusions Summary: - Left ventricle: There is mild concentric hypertrophy. Systolic function is normal. The estimated ejection fraction is 55-60%. Wall motion is normal; there are no regional wall motion abnormalities. - Right ventricle: Systolic function is normal. - Atrial septum: A PFO is not demonstrated by color Doppler or agitated saline contrast. - Mitral valve: There is trace regurgitation. - Aortic valve: There is trace regurgitation. - Tricuspid valve: There is physiologic regurgitation. - Pericardium, extracardiac: There is no significant pericardial effusion. - Study data: No prior study is available for comparison. Study data: Transthoracic echocardiogram. Procedure: Transthoracic echocardiography was performed. Image quality was good. A bubble study was performed. Complete 2D, spectral Doppler, and color flow Doppler. Location: Bedside. Patient status: Inpatient. Patient room number: 441-2. No prior study is available for comparison. Rhythm: Normal sinus rhythm with PAC's. Findings Left ventricle: The cavity size is normal. There is mild concentric hypertrophy. Systolic function is normal. The estimated ejection fraction is 55-60%. Wall motion is normal; there are no regional wall motion abnormalities. Doppler parameters are consistent with abnormal left ventricular relaxation (grade 1 diastolic dysfunction). Right ventricle: The cavity size is normal. The moderator band is in a normal position. Systolic function is normal. Left atrium: The atrium is normal in size. Right atrium: The atrium is normal in size. Atrial septum: A PFO is not demonstrated by color Doppler or agitated saline contrast. The bubble study was negative. Images 1 and 2. Mitral valve: The leaflets are mildly thickened. There is no evidence of stenosis. There is trace regurgitation. Aortic valve: The valve is trileaflet. The leaflets are normal thickness. There is no evidence of stenosis. There is trace regurgitation. Tricuspid valve: The leaflets are normal thickness. There is no evidence of stenosis. There is physiologic regurgitation. Pulmonic valve: The leaflets are normal thickness. There is no evidence of stenosis. There is trace regurgitation. Aorta: Ascending aorta: The ascending aorta is appears normal. The aortic root appears normal. The aortic arch appears normal. Pericardium: A prominent pericardial fat pad is present. There is no significant pericardial effusion. Pulmonary arteries: The main pulmonary artery is normal-sized. Systolic pressure is within the normal range. Systemic veins: Inferior vena cava: The vessel is dilated. There is (>= 50%) respiratory change in the IVC dimension. Measurements Left ventricle Value Ref Aortic valve Value Ref MANUELA, LAX 4.3 cm 4.2 - 5.8 Key diam, ED 1.8 cm ----- ESD, LAX 2.8 cm 2.5 - 4.0 Peak v, S 1.16 m/sec ----- FS, LAX 34 % 25 - 43 VTI, S 24.5 cm ----- PW, ED, LAX (H) 1.1 cm 0.6 - 1.0 Mean grad, S 3.0 mm Hg ----- FS 34 % 25 - 43 Peak grad, S 5.0 mm Hg ----- PW, ED (H) 1.1 cm 0.6 - 1.0 LVOT/AV, VTI ratio 0.78 ----- E', lat key, TDI (L) 7.6 cm/sec >=10.0 E/e', lat key, 7 Mitral valve Value Ref TDI Peak E 0.55 m/sec ----- E', med key, TDI (L) 6.2 cm/sec >=7.0 Peak A 0.86 m/sec --- -- E/e', med key, 9 Decel time 292 ms ----- TDI Peak E/A ratio 0.6 ----- E', avg, TDI 6.9 cm/sec E/e', avg, TDI 8 <=14 Pulmonic valve Value Ref Peak v, S 0.86 m/sec ----- LVOT Value Ref Peak grad, S 3.0 mm Hg ----- Peak ayala, S 0.9 m/sec VTI, S 19.0 cm Tricuspid valve Value Ref Mean grad, S 2 mm Hg TR peak v 2.1 m/sec <=2.8 Peak RV-RA grad, S 18 mm Hg ----- Ventricular septum Value Ref IVS, ED (H) 1.1 cm 0.6 - 1.0 Aortic root Value Ref Root diam 3.3 cm <4.0 Right ventricle Value Ref MANUELA, LAX 3.4 cm Ascending aorta Value Ref MANUELA minor ax, A4C 3.3 cm 1.9 - 3.5 AAo AP diam, S 3.6 cm ----- mid Pressure, S 26 mm Hg Aortic arch Value Ref Arch diam 2.0 cm ----- Left atrium Value Ref AP dim, ES 3.30 cm 3.00 - Decending aorta Value Ref 4.00 Amber peak ayala 0.61 m/sec ----- ML dim, A4C 3.5 cm SI dim, A4C 4.0 cm Pulmonary artery Value Ref Vol/bsa, ES, 1-p 18 ml/m^2 12 - 37 Pressure, S 23.0 mm Hg ----- A4C Vol/bsa, ES, A/L 23 ml/m^2 16 - 34 Inferior vena cava Value Ref Diam 2.3 cm ----- Right atrium Value Ref SI dim, ES 4.4 cm 3.4 - 5.3 ML dim, ES, A4C 3.0 cm 2.6 - 4.4 SI dim, ES, A4C 4.4 cm 3.4 - 5.3 Estimated RAP 8 mm Hg Legend: (L) and (H) don values outside specified reference range. Prepared and electronically signed by Jacobo Reyna MD 01/07/2019 16:49
[2019-01-07] MEDS ORDERED: Atorvastatin* 40 MG TAB PO SCH (17:00)
[2019-01-07] MEDS: Polymyx/Trimethoprim OPTH* 10 ML BTL BOTH EYES SCH (21:47)
[2019-01-08] MEDS: amLODIPine TAB* 5 MG PO SCH (09:48)
[2019-01-08] MEDS: Cholecalciferol TAB* 1000 UNITS PO SCH (09:49)
[2019-01-08] MEDS: Cyanocobalamin TAB* 500 MCG PO SCH (09:49)
[2019-01-08] MEDS: Pantoprazole TAB * 40 MG TAB PO SCH (09:49)
[2019-01-08] MEDS: LAMOTRIGINE 200 MG PO SCH (09:50)
[2019-01-08] MEDS: LEVETIRACETAM 500 MG PO SCH (09:50)
[2019-01-08] MEDS: Polymyx/Trimethoprim OPTH* 10 ML BTL BOTH EYES SCH (09:51)
[2019-01-08 12:14] VITALS: BP 132/83
--- NOTE | 2019-01-08 22:17 | DS ---
CC: Dr. Toth; Dr. Gallo * DISCHARGE SUMMARY: DATE OF ADMISSION: 01/06/19 DATE OF DISCHARGE: 01/08/19 PROVIDER: NARDA Bales. ATTENDING PHYSICIAN: Dr. Jerry Holloway * (dictated by NARDA Bales). CONSULTING NEUROLOGIST: Dr. Toth. PRIMARY CARE PROVIDER: Dr. Gallo. PRIMARY DIAGNOSIS: Likely transient ischemic attack. SECONDARY DIAGNOSES: 1. Cavernous hemangioma. 2. Seizure disorder. 3. Hypertension. STUDIES WHILE IN THE HOSPITAL: MRA head and neck, impression: no acute occlusive disease. No significant stenosis in the major vessels in the neck. 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 Brain MRI on 01/07/19, impression: Compared with the 10/15/16 MRI, there is no significant change. Finding of multiple foci of hemosiderin deposition of the cerebral hemispheres, cerebellum, brainstem likely reflecting the presence of cavernous hemangioma with the largest at the left temporal lobe as described. No new abnormality evident compared to previous exam. An echocardiogram on 01/07/19, bubble study is negative. EF is 55% to 60%. No regional wall motion abnormalities. Pertinent lab data: LDL 100. HISTORY OF PRESENT ILLNESS/HOSPITAL COURSE: Rafy Phelan is a 73-year-old white male with a past medical history significant for cavernous hemangioma, seizure disorder, and hypertension who presented to the emergency department due to some gait disturbance and sensation change in the left lower extremity. Please see admitting history and physical dictated by Shaista Meyer, nurse practitioner, for further information. After the patient was admitted, it was realized by the the patient and his that the patient was accidentally taking extra Lamictal instead of his amlodipine for the last week. This was discussed with Dr. Toth and given that at this point the patient had already been taking 1 week of additional Lamictal, he did not believe that this was the explanation for his presenting symptoms based on the timing as this would have occurred earlier in this additional dosing if this were the case. Given the symptoms, Dr. Toth believes that patient had a likely TIA and given that the patient has risk for bleeding on dual antiplatelet therapy, this will not be used. A statin was started. He was evaluated by physical therapy, who agreed the patient was at his baseline functional status and ultimately, he was to his baseline overall. The patient initially had hypertension in the emergency department. This could be because of the TIA or also reflective of the fact that the patient accidently has not been treating his hypertension for the last week, and on the date of discharge and on most of the day on the floor on the day of admission, the patient's blood pressure was under control after starting hypertensives. He did receive 1 dose of hydrochlorothiazide in the emergency department. Additionally, the patient notes that he does not have a local neurologist anymore because his specialist from [place] used to have appointments in [place] and they no longer do. On the day of discharge, the patient is feeling well. He has no complaints. No sensation changes or weakness. Denies chest pain or difficulty breathing. No visual changes. The patient does have intermittent diplopia since strabismus surgery, but has not been experiencing that today. The patient was monitored on telemetry during his hospital stay. He was found to have sinus arrhythmia and this is not contributory to his risk factors for TIA or CVA and he was never tachycardic. PHYSICAL EXAMINATION: A thin, elderly white male lying on the hospital bed, in no acute distress. Eyes: PERRL. Sclerae anicteric. Slight lateral deviation of the left eye. ENT: Mucous membranes are moist. Lungs: Clear to auscultation throughout. Cardio: Regular rate and rhythm without murmurs, rubs , or gallops. Abdomen: Soft, nontender, nondistended. Neuro: Strength is 5/5 in all extremities. Sensation to light touch is intact throughout. Face is symmetric. Speech is clear. No focal deficits. The patient is alert and oriented x3. DISCHARGE PLAN: Diet: The patient may return to a regular diet. Activity: The patient may return to normal activity as tolerated. The patient should return to the emergency department if he is experiencing sudden one-sided numbness, tingling, weakness, facial droop, slurred speech, visual disturbance, chest pain, gait disturbance. The patient should follow up with his primary care provider in 7 to 10 days. The patient may follow up with Dr. Toth given that he no longer has a local neurologist. The patient was advised about the risks of additional TIAs within the first 7 days after an initial TIA. DISCHARGE MEDICATIONS: Lipitor 40 mg p.o. daily. Continued Home Medications: 1. Polytrim 1 drop to both eyes b.i.d. 2. Lamictal XR 200 mg p.o. b.i.d. 3. Keppra XR 1500 mg p.o. b.i.d. 4. Pantoprazole 40 mg p.o. daily. 5. Amlodipine 10 mg p.o. daily. 6. Calcium and magnesium supplement. 7. Vitamin B12 at 1000 mcg p.o. daily. 8. Multivitamin supplement. 9. Calcium carbonate 500 mg p.o. daily. 10. Vitamin D 1000 units p.o. b.i.d. 11. Probiotic 1 tab p.o. daily. CONDITION ON DISCHARGE: Stable. DISPOSITION: Home. TIME SPENT: Approximately 45 minutes were spent on this discharge, approximately half this time was spent at the bedside answering the patient's questions and following the patient. NARDA BALES [id number]/[facility] #: [id number] MTDD
== END 2019-01-08 13:27 | disposition home or self-care (01) ==
LOC: ED 08:18 → MEDTELE 10:03
PROVIDERS: ADMIT Internal Medicine; ATTEND Internal Medicine
DX: R53.1 Weakness (principal); D18.00 Hemangioma unspecified site; G40.909 Epilepsy, unspecified, not intractable, without status epilepticus; I10 Essential (primary) hypertension; Z79.899 Other long term (current) drug therapy; R26.9 Unspecified abnormalities of gait and mobility; R94.31 Abnormal electrocardiogram [ECG] [EKG]; K21.9 Gastro-esophageal reflux disease without esophagitis; Z87.891 Personal history of nicotine dependence; R20.0 Anesthesia of skin; Z87.438 Personal history of other diseases of male genital organs; Z85.820 Personal history of malignant melanoma of skin
CPT/HCPCS: 36415; 70450; 70544; 70547; 70551; 71045; 80048; 80053; 80061; 81003; 81015; 83605; 84484; 85025; 85610; 85730; 93005; 93306; 99284; A9270-GY; G0378; G8978-GP-CH; G8979-GP-CH; G8980-GP-CH; G8987-GO-CH; G8988-GO-CH; G8989-GO-CH